=== PATIENT | male | born 1950 | race Caucasian/White ===

== ENCOUNTER 2023-07-31 23:59 | Emergency (ER) | payer MEDICARE, SELFPAY ==
--- NOTE | ~2023-07-31 | CT_ITS ---
CT Scan of the Chest without Contrast: Clinical Indication: Cough Technique: Contiguous sections were acquired throughout the chest without intravenous contrast. Dose reduction technique was used on this scan by utilizing automated exposure control and iterative recon struction technique. The dose-length product (DLP) was 360.60 mGy-cm. Findings: There is no evidence of any significant mediastinal, hilar or axillary lymphadenopathy. The mediastin al soft tissues appear normal. There is no evidence of pleural or pericardial effusion. There are multiple patchy areas of predominantly groundglass opacity bilaterally, most prevalent in t he right lower lobe. Images through the upper abdomen reveal no abnormalities. Impression: Patchy, predominantly groundglass consolidation, worst in the right lower lobe. Findings are most com patible with pneumonia/infectious process. Reviewed, dictated and finalized at [facility]. Impression: Patchy, predominantly groundglass consolidation, worst in the right lower lobe. Findings are most compatible with pneumonia/infectious process.
[2023-08-01] VITALS (7 sets, daily range): BP systolic 120–122; BP diastolic 68–78; PULSE 94–131; RESP 19–22; TEMP 38.2; O2SAT 95–97
--- NOTE | 2023-08-01 00:08 | PC.NURSE ---
Patient states he took two or three allergy pills and two Tylenol around .
--- NOTE | 2023-08-01 00:25 | ED.URI ---
HPI - URI/Sore Throat General Chief Complaint: Upper Respiratory Infection Stated Complaint: i think i have COVID fever and a little cough Time Seen by Provider: 08/01/23 00:12 History of Present Illness HPI Narrative: Patient presents to the emergency department with his . They recently traveled to [place] with a group of friends. When they came back his had upper respiratory symptoms. She thought it was her allergies. But then the patient became sick as well. Cough body aches fever. Took 3 Tylenol at home did not improve the temperature so came to the emergency department. Patient told triage nurse that he thinks he has COVID. His significant other contributes to the history saying they were worried when his fever did not improve. Patient is a very pleasant and amicable but appears uncomfortable Related Data Allergies Allergy/AdvReac Type Severity Reaction Status Date / Time No Known Allergies Allergy Mild Verified 03/15/11 13:14 Review of Systems Review of Systems: Review of systems negative except what is documented in the HPI Exam Narrative: GENERAL: Well-appearing, well-nourished, and in no acute distress. HEAD: Normocephalic, atraumatic. EYES: PERRLA and EOMI. ENT: Nares clear, no rhinorrhea or epistaxis. Mucous membranes moist. NECK: Supple. CHEST: Clear to auscultation. No respiratory distress. HEART: Regular rate and rhythm. ABDOMEN: Soft, nontender, nondistended. EXTREMITIES: Normal range of motion. No edema. SKIN: Warm, dry, no rash. NEURO: No focal deficits. Alert and oriented x3. PSYCH: Normal mood and affect. Course Course Emergency Course: Differential diagnosis includes but not limited to pneumonia, COVID, dehydration Telemetry ordered due to cough and weakness and tachycardia to evaluate for dysrhythmias. Evaluated by myself. Rhythm sinus tach Rate 120 I have discussed smoking cessation with patient and advised of the dangers. He currently does not smoke and says he wont start. Vital Signs Vital signs: Vital Signs Temperature 38.2 C H 08/01/23 00:02 Pulse Rate 131 H 08/01/23 00:02 Respiratory Rate 22 H 08/01/23 00:02 Blood Pressure 120/78 08/01/23 00:02 Pulse Oximetry 96 08/01/23 00:02 Oxygen Delivery Room Air 08/01/23 00:02 Temperature 38.2 C H 08/01/23 00:02 Pulse Rate 94 08/01/23 05:01 Respiratory Rate 19 08/01/23 05:01 Blood Pressure 122/68 08/01/23 05:03 Pulse Oximetry 95 08/01/23 05:01 Oxygen Delivery Room Air 08/01/23 00:02 MDM - URI/Sore Throat MDM Narrative Medical decision making narrative: Pt pending ct scan and he is feeling worse. Additional meds ordered. CT scan comes back and shows mild patchy bilateral infiltrates especially in the right lower lobe. As well as small mediastinal lymph nodes. We will treat patient for pneumonia. Heart rate improved to 94. 93% on room air. Blood pressure stable. Initial dose of antibiotics given in emergency department. Will DC to home. Shared decision making with patient and friend regarding antibiotics to take at home for fever and symptoms and when to return to the emergency department Lab Data 08/01/23 00:54 08/01/23 00:54 Labs: Lab Results 08/01/23 08/01/23 Range/Units 00:13 00:54 WBC 6.5 (4.5-10.0) K/mm3 RBC 3.38 L (4.6-6.20) M/mm3 Hgb 12.0 L (14.0-18.0) g/dL Hct 34.0 L (42.0-52.0) % MCV 100.6 H (80-100) fl MCH 35.5 H (26-34) pg MCHC 35.3 (32-36) g/dl RDW 11.5 (11.5-14.5) % Plt Count 142 L (150-375) k/mm3 MPV 9.4 (7.4-10.4) fl Immature Gran % (Auto) 0.5 (0-0.5) % Neut % (Auto) 74.6 H (45.5-73.1) % Lymph % (Auto) 5.7 L (18.3-44.2) % [place] % (Auto) 18.7 H (2.6-8.5) % Eos % (Auto) 0.2 (0-4.4) % Baso % (Auto) 0.3 (0.2-1.2) % Lymph # (Auto) 0.37 L (0.9-3.2) K/mm3 [place] # (Auto) 1.2 H (0.1-0.6) K/mm3 Eos # (Auto) 0.0 (0-0.3) K/mm3 Baso # (Auto) 0.0
[2023-08-01] MEDS: BENZONATATE 100 MG CAPSULE PO ×2 (00:52→04:53)
[2023-08-01] MEDS: KETOROLAC 15 MG/ML VIAL (*BKC) IV PUSH (00:53)
[2023-08-01] MEDS: SODIUM CHLORIDE 0.9% IV 1,000 ML 999 ML IV CONT (00:53)
[2023-08-01 00:55] LABS: Influenza A QL RT-PCR Negative (Negative); Influenza B QL RT-PCR Negative (Negative); RSV RNA, RT-PCR Negative (Negative); SARS-CoV-2 RNA PCR Negative (Negative)
[2023-08-01 01:04] LABS: Basophils Percent Auto 0.3 % (0.2-1.2); Eosinophils Percent Auto 0.2 % (0-4.4); Immature Granulocyte Absolute 0.03 K/mm3 (0.00-0.031); Immature Granulocyte Percent A 0.5 % (0-0.5); Lymphocytes Absolute Auto 0.37 K/mm3 (0.9-3.2); Lymphocytes Percent Auto 5.7 % (18.3-44.2); Mean Corpuscular HGB Conc 35.3 g/dl (32-36); Mean Corpuscular Hemoglobin 35.5 pg (26-34); Mean Corpuscular Volume 100.6 fl (80-100); Mean Platelet Volume 9.4 fl (7.4-10.4); Monocytes Absolute Auto 1.2 K/mm3 (0.1-0.6); Monocytes Percent Auto 18.7 % (2.6-8.5); Neutrophils Absolute Auto 4.8 K/mm3 (1.3-6.7); Neutrophils Percent Auto 74.6 % (45.5-73.1); Platelet Count Result 142 k/mm3 (150-375); Red Blood Count 3.38 M/mm3 (4.6-6.20); Red Cell Distribution Width 11.5 % (11.5-14.5); White Blood Count 6.5 K/mm3 (4.5-10.0)
[2023-08-01 01:15] LABS: Alanine Aminotransferase 20 U/L (6-50); Albumin Level 4.1 g/dL (3.5-5.1); Alkaline Phosphatase 38 U/L (38-126); Anion Gap 12 mmol/L (8-16); Aspartate Amino Transferase 27 U/L (17-59); Bilirubin,Total 0.9 mg/dL (0.2-1.3); Blood Urea Nitrogen 11 mg/dL (9-20); Calcium 8.9 mg/dL (8.4-10.2); Carbon Dioxide 19 mmol/L (22-30); Chloride 94 mmol/L (98-107); Estimated CRCL calculation 80 ml/min; Estimated Glomerular Filt Rate > 60; Glucose 112 mg/dL (65-110); Potassium 3.7 mmol/L (3.4-5.0); Sodium 125 mmol/L (137-145)
--- NOTE | 2023-08-01 03:00 | PC.NURSE ---
Patient removed his leads, BP cuff, and pulse ox. Patient's visit unplugged monitor stating, We were tired of the beeping .
[2023-08-01] MEDS: traMADol HCL (*CRX) 50 MG TABLET PO (04:53)
[2023-08-01] MEDS: LORATADINE 10 MG TABLET PO (05:00)
[2023-08-01] MEDS: AMOXICILLIN 500 MG CAPSULE PO (05:07)
[2023-08-01] MEDS: AZITHROMYCIN 250 MG TABLET 500 MG PO (05:07)
== END 2023-08-01 05:24 | disposition home or self-care (01) ==
PROVIDERS: Emergency Provider Emergency Medicine
DX: J18.9 Pneumonia, unspecified organism (principal); R50.9 Fever, unspecified; R00.0 Tachycardia, unspecified; Z20.822 Contact with and (suspected) exposure to COVID-19
CPT/HCPCS: 36415; 71250; 80053; 85025; 87637; 96361; 96374; 99284; A9270; J1885; J7030

== ENCOUNTER 2024-06-06 20:56 | Emergency (ER) | payer MEDICARE, SELFPAY ==
--- NOTE | ~2024-06-06 | XR_ITS ---
EXAM: XR knee RT min 4V DATE: 06/06/2024 21:16 HISTORY: swelling, pain TO ANTERIOR KNEE, NKI, SURGERY 7 YRS AGO . COMPARISON: 10/10/2012. FINDINGS: Uncomplicated appearing medial compartment hemiarthroplasty hardware. Decreased mineraliza tion. No fracture or dislocation. No lytic or blastic lesion. Moderate degenerative change in the pat ellofemoral compartment. Mild degenerative change in the lateral compartment. No erosion or periostea l change. Stable calcifications/ossifications in the popliteal fossa. Moderate volume joint fluid. IMPRESSION: No acute fracture or dislocation in right knee. Moderate right knee joint effusion. No ra diographic evidence of hardware related complication. Reviewed, dictated and finalized at location K. IMPRESSION: No acute fracture or dislocation in right knee. Moderate right knee joint effusion. No radiographic evidence of hardware related complication.
[2024-06-06 20:58] VITALS: BP 122/65; PULSE 87; RESP 17; TEMP 36.7; O2SAT 98
--- NOTE | 2024-06-06 23:08 | ED.EXTPRO ---
HPI - Extremity Problem General Chief complaint: Extremity Problem,Nontraumatic Stated complaint: right knee pain Time Seen by Provider: 06/06/24 22:54 Source: patient and family Mode of arrival: ambulatory Limitations: no limitations History of Present Illness HPI Narrative: Patient presents with right knee pain starting yesterday and worsening. He tried Tylenol and Biofreeze he has and lidocaine Aspercreme ibuprofen. He describes it as a throbbing. He has a history of knee replacement surgery of 7 years ago with Orthopedic surgery and Dr. Nickolas durant a in [place] that does not follow with him routinely/regularly and does not know if he is still in practice. He has been more active lately since he bought a house and is in the process of moving. Denies any fevers. Pain is described as a throbbing. No direct injury/trauma. Patient describes pain not particularly along the medial or lateral joint line or even anteriorly or posteriorly particularly but states that it feels like it is inside. He does keep talking about his chronic back pain and has to at times be redirected by myself and his to discuss the knee pain. For his chronic back pain he receives lumbar shots at [facility] for which he is next due for another 1 in 2 weeks. Related Data Home Medications Medication Instructions Recorded Confirmed atorvastatin 20 mg tablet 20 mg PO DAILY 12/20/23 03/01/24 tadalafil 20 mg tablet 20 mg PO DAILY 12/20/23 03/01/24 cholecalciferol (vitamin D3) 25 25 mcg PO DAILY 03/01/24 03/01/24 mcg (1,000 unit) capsule ferrous sulfate 325 mg (65 mg 325 mg PO DAILY 03/01/24 03/01/24 iron) tablet vitamin B complex 1 tablet PO DAILY 03/01/24 03/01/24 Allergies Allergy/AdvReac Type Severity Reaction Status Date / Time No Known Allergies Allergy Mild Verified 12/20/23 14:30 [facility] Past Medical History Medical History Chronic back pain Hyperlipidemia Osteoarthritis Surgical History Surgical History History of appendectomy 1969 History of right inguinal hernia repair 2004 History of shoulder surgery X4 History of tonsillectomy History of total knee arthroplasty Right; orthopedic surgeon Dr Mckay Hx of bilateral cataract extraction 09/2023 Social History Social History (Updated 12/20/23 @ 14:36 by Megan Valencia MA) Smoking status: Never smoker Alcohol intake: current Substance use: never Substance use type: does not use Do You Feel Safe in your Home?: Yes Lack of Transportation: No Lack of Food: Never True Current Housing: I Have Housing Concerned About Future Housing: No Difficulty Paying Gas/Electric Bills: No Difficulty Paying for Meds: No Currently Unemployed: No Education: Associate Degree Difficulty w/ Childcare or Family Care: No Living arrangements: alone Occupation/Education: retired Gender identity (if verbalized by the patient): Male Sexual Orientation (if Verbalized by the Patient): Straight or Heterosexual Spiritual care concerns: No Exam Narrative: GENERAL: Well-appearing, well-nourished, and in no acute distress. HEAD: Normocephalic, atraumatic. EYES: Non injected, non icteric ENT: Nares clear, no rhinorrhea or epistaxis. NECK: Supple. CHEST: Speaking in full sentences. No respiratory distress. HEART: Regular rate and rhythm. . ABDOMEN: Soft, nondistended. EXTREMITIES: Normal range of motion. 2+ pitting edema right leg, 1+ edema left leg. 5/5 strength with bilateral knee flexion extension, hip abduction/adduction/flexion. No tenderness to palpation of lateral or medial joint line. No effusion around the right knee with no overlying skin changes. SKIN: Warm, dry, no rash. Warm and well perfused but knee not particularly warm to the touch. NEURO: No focal deficits. Alert and oriented x3. Sensation intact to gross t
[2024-06-07] MEDS: APIXABAN 5 MG TABLET PO (00:09)
[2024-06-07 00:14] VITALS: BP 118/74; PULSE 87; RESP 14; O2SAT 98
== END 2024-06-07 00:16 | disposition home or self-care (01) ==
PROVIDERS: Emergency Provider Student in an Organized Health Care Education/Training Program; PCP Family Medicine
DX: M25.461 Effusion, right knee (principal); R60.0 Localized edema; Z96.651 Presence of right artificial knee joint; E78.5 Hyperlipidemia, unspecified; M19.90 Unspecified osteoarthritis, unspecified site; G89.29 Other chronic pain; M54.9 Dorsalgia, unspecified; Z98.42 Cataract extraction status, left eye; Z98.41 Cataract extraction status, right eye; Z79.899 Other long term (current) drug therapy
CPT/HCPCS: 73564; 93971; 99283; A9270

== ENCOUNTER 2024-06-07 06:52 | Outpatient (CLI) | payer MEDICARE, SELFPAY ==
--- NOTE | ~2024-06-07 | US_ITS ---
EXAMINATION: US venous doppler LE RT DATE: 06/07/2024 08:35 INDICATION: Right lower limb pain and swelling TECHNIQUE: Grayscale ultrasound images without and with compression and Doppler ultrasound images of the right lower extremity veins were obtained. COMPARISON: None. FINDINGS: The visualized portions of right common femoral vein, profunda (deep) femoral vein, femoral vein, pop liteal vein, peroneal trunk, posterior tibial veins, peroneal veins, gastrocnemius vein and greater s aphenous vein outflow are patent. IMPRESSION: 1. No deep venous thrombosis in the right lower limb. Reviewed, dictated and finalized at location A.
== END 2024-06-07 06:53 | disposition home or self-care (01) ==
PROVIDERS: PCP Family Medicine; Visit Provider Student in an Organized Health Care Education/Training Program
DX: M25.461 Effusion, right knee (principal)
CPT/HCPCS: 93971

== ENCOUNTER 2025-02-03 12:27 | Outpatient (CLI) | payer MEDICARE, SELFPAY ==
--- NOTE | ~2025-02-03 | CT_ITS ---
EXAMINATION: CT abdomen pelvis w con DATE: 02/03/2025 13:28 INDICATION: Abnormal weight loss TECHNIQUE: Computed tomography (CT) of the abdomen and pelvis was performed with 100 CC Omnipaque 350 intravenous contrast. Automated exposure control and iterative reconstruction technique were employe d. Exam dose: 461.39 mGy-cm total exam DLP. COMPARISON: None. FINDINGS: The lung bases are clear. Normal heart size. No pericardial or pleural effusion. There are couple approximately 6 mm right hepatic probable cysts and 10 mm lateral segment left hepat ic probable cyst. An additional very small medial segment left hepatic probable cyst is suggested. The gallbladder appears unremarkable without thickening of the wall or surrounding fat stranding or f luid. No bile duct or pancreatic duct dilatation. No pancreatic mass lesion or calcification. Normal splenic size. Normal morphology of the adrenal glands. 5 mm right renal cortical cyst. Several left renal cysts, measuring up to 1.9 cm. No urinary tract calculus or hydroureteronephrosis. There is diffuse thickening of the urinary bladder wall, which may be due to underdistention, mild pr ostatomegaly or cystitis. No bowel obstruction, bowel wall thickening, pneumatosis or intraperitoneal free air. No abdominal aortic aneurysm. No intraperitoneal or retroperitoneal or pelvic mass lesion or adenopathy or ascites. There is a 2.3 x 2.8 cm oval soft tissue density in the right inguinal area which may be a mesh plug from prior ingu inal herniorrhaphy; differential diagnosis would include right external iliac lymphadenopathy. Recomm end correlation with surgical history. There is dextroscoliosis and multilevel severe degenerative disease of the lumbar spine, particularly at L1-2 and L2-3 on the left, L3-4 diffusely and at L4-5 on the right. No suspicious osteolytic or osteoblastic lesions are noted.. IMPRESSION: Occasional hepatic and renal cysts Diffuse thickening of the urinary bladder wall which may be due to underdistention, prostatomegaly or cystitis Probable right inguinal herniorrhaphy versus less likely right external iliac lymphadenopathy; recomm end correlation with surgical history. Reviewed, dictated and finalized at [facility]. Reviewed, dictated and finalized at [facility]. IMPRESSION: Occasional hepatic and renal cysts Diffuse thickening of the urinary bladder wall which may be due to underdistent ion, prostatomegaly or cystitis Probable right inguinal herniorrhaphy versus less likely right external iliac l ymphadenopathy; recommend correlation with surgical history.
--- OUTSIDE RECORDS SUMMARY | 2025-02-03 12:31 | XMS_ITS | Encounter Summary ---
Author Organization [facility] Address [facility]ly [facility], [facility] [place] [address] Care Team Providers Care Towel Sorter Name Role Phone Channing Barlow MD Primary Care Provider U Amy Camara MD Primary Care Provider [phone] None, Provider Primary Care Provider Unavaila ble Amy Cortes MD Primary Care Provider [phone] Bari Ballard MD Primary Care Provider [phone] Encounter Details Date Type Department Care Team (Late st Contact Info) Description 05/18/2017 Abstract [facility] CONVERSION [address] [place] [address] , Generic ConversionMD Social History Tobacco Use Types Packs/Day Years Used Date Smoking Tobacco: Never Assessed Sex and Gender Information Value Date Recorded Sex Assigned at Male 12/04/2024 9:39 AM FINISH MOLDER Legal Sex Male 7:23 PM CDT Gender Identity Not on file Sexual Orientation Not on file documented as of this encounter Plan of Treatment Not on file documented as of this encounter Visit Diagnoses Not on filedocumented in this encounter Care Teams Towel Sorter Relationship Specialty Start Date End Date Channing Barlow MD PCP - General INTERNAL MEDICINE 05/25/17 12/30/22 [place] [address] [place] [address] PCP - General FAMILY PRACTICE 12/31/22 06/06/24 None, Provider, PCP - General UNKNOWN PHYSICIAN SPECIALTY 06/20/24 08/21/24 [place] [address] [facility]. [address] [address] PCP - General FAMILY PRACTICE 08/22/24 09/03/24 Bari Ballard MD [address] [place] [address] PCP - General FAMILY PRACTICE 09/04/24 documented as of this encounter
--- OUTSIDE RECORDS SUMMARY | 2025-02-03 12:31 | XMS_ITS | Encounter Summary ---
Author Organization [facility] Address [facility] [place] [address] Care Team Providers Care Bar Catcher Name Role Phone Channing Barlow MD Primary Care Provider U Amy Camara MD Primary Care Provider [phone] None, Provider Primary Care Provider Unavaila Amy Gilliam MD Primary Care Provider [phone] Bari Ballard MD Primary Care Provider [phone] Encounter Details Date Type Department Care Team (Late st Contact Info) Description 12/02/2015 Abstract [facility] CONVERSION [address] [place] [address] , Generic Conversion, Social History Tobacco Use Types Packs/Day Years Used Date Smoking Tobacco: Never Assessed Sex and Gender Information Value Date Recorded Sex Assigned at Male 12/04/2024 9:39 AM HEAD OF DATA Legal Sex Male 7:23 PM CDT Gender Identity Not on file Sexual Orientation Not on file documented as of this encounter Plan of Treatment Not on file documented as of this encounter Visit Diagnoses Not on filedocumented in this encounter Care Teams Bar Catcher Relationship Specialty Start Date End Date Channing Barlow MD PCP - General INTERNAL MEDICINE 05/25/17 12/30/22 [place] [address] [place] [address] PCP - General FAMILY PRACTICE 12/31/22 06/06/24 None, Provider, PCP - General UNKNOWN PHYSICIAN SPECIALTY 06/20/24 08/21/24 [place] [address] [facility]. [address] [address] PCP - General FAMILY PRACTICE 08/22/24 09/03/24 Bari Ballard MD [address] [place] [address] PCP - General FAMILY PRACTICE 09/04/24 documented as of this encounter
--- OUTSIDE RECORDS SUMMARY | 2025-02-03 12:31 | XMS_ITS | Continuity of Care Document ---
Author Organization [facility] Address [address] [place] [address] Phone Care Team Providers Care Agitator Operator Name Role Phone Sammy RUBIO, Peter Unavailable Unavailable Procedures Procedure Date Work/medical disability examination [facility] X-ray exam of knee, 1 or2 views 010 X-ray exam of both knees, standing Prolonged serv, w/o contact, 1st hr Advance Directives Directive Yes / No Effective Date File Name No Information Encounters Encounter Description Practice Location Reason(s) For Visit Diagnoses Date Provider Providers Copied on Encounter Work/medical disability examination [facility] [email or web address] [facility], [address] [facility], [place], [place], [id number], tel:[phone] [facility] No Information 0 Sammy Green. [address] [facility], [facility] [address], [place], [place], [id number] , . tel: [phone] Family History Family Member Type Diagnosis Age At Onset No Information Payers Payer name Insurance type Covered republican ID Katharine smallwood(isha Ansari [id number] Social History Type Description Quantity Date Captured [...]
--- OUTSIDE RECORDS SUMMARY | 2025-02-03 12:31 | XMS_ITS | Encounter Summary ---
Author Organization [facility] Address [facility] [place] [address] Care Team Providers Care Flat Surfacer Name Role Phone Amy Cortes MD Primary Care Provider [phone] None, Provider MD Primary Care Provider Unavaila [facility] Amy Cortes MD Primary Care Provider [phone] Bari Ballard MD Primary Care Provider [phone] Encounter Details Date Type Department Care Team (Late st Contact Info) Description 08/16/2023 DocuSign Message Enc [facility] Family & Internal Medicine [address] [address] Alex, [facility] Provider results Social History Tobacco Use Types Packs/Day Years Used Date Smoking Tobacco: Never Smokeless Tobacco: Never Alcohol Use Standard Drinks/Week Comments Yes 10 (1 standard drink = 0.6 oz pu re alcohol) Occasional PHQ-2 Answer Date Recorded Patient Health Questionnaire-2 Score 0 12/03/2022 Education Answer Date Recorded What is the highest level of school you have completed or the highest degree you have received? Associate degree: academic program 12/04/2018 Sex and Gender Information Value Date Recorded Sex Assigned at Male 12/04/2024 9:39 AM PAPER SALES REPRESENTATIVE Legal Sex Male 7:23 PM CDT Gender Identity Not on file Sexual Orientation Not on file documented as of this encounter Plan of Treatment Not on file documented as of this encounter Visit Diagnoses Not on filedocumented in this encounter Additional Health Concerns Assessment Noted Time PHQ-9 Depression Total Score: 0 05/26/20 22 9:59 AM CDT documented as of this encounter Care Teams Flat Surfacer Relationship Specialty [place] [address] [place] [address] PCP - General FAMILY PRACTICE 12/31/22 06/06/24 None, Provider, PCP - General UNKNOWN PHYSICIAN SPECIALTY 06/20/24 08/21/24 [place] [address] [place] [address] PCP - General FAMILY PRACTICE 08/22/24 09/03/24 Bari Ballard MD [address] [place] [address] PCP - General FAMILY PRACTICE 09/04/24 documented as of this encounter
--- OUTSIDE RECORDS SUMMARY | 2025-02-03 12:31 | XMS_ITS | Encounter Summary ---
Author Organization [facility] Address [facility] [place] [address] Care Team Providers Care Fund Accounting Manager Name Role Phone Bari Ballard MD Primary Care Provider [phone] Reason for Visit * Auth/Cert (Routine) Specialty Diagnoses / Procedures Referred By Contsoto t Referred To Contact Diagnoses Lumbar facet arthropathy lumbar facet arthropathy Procedures INJ PARAVERTEBRAL FACET JOINT W IMAGE SINGL INJ PARAVERTEBRAL FACET JOINT W IMAGE SINGL INJ DIAGNOSTIC OR THERAPEUTIC W IMAGE GUIDE INJECTION FACET JOINT-L2-3, L3-4 Erika Short MD [address] [facility] [address] [place] [address] Phone: tel: fax: Referral ID Status Reason Start Date Expiration Date Visits Re quested Visits Authorized [id number] 1 1 Encounter Details Date Type Department Care Team (Late st Contact Info) Description 10/24/[address] [facility] [address] [place], [place] [id number] Erika Short MD [address] [facility] [address] [place] [address] Social History Tobacco Use Types Packs/Day Years Used Date Smoking Tobacco: Never Smokeless Tobacco: Never Alcohol Use Standard Drinks/Week Comments Yes 10 (1 standard drink = 0.6 oz pu re alcohol) Occasional PHQ-2 Answer Date Recorded Patient Health Questionnaire-2 Score 0 12/07/2023 Education Answer Date Recorded What is the highest level of school you have completed or the highest degree you have received? Associate degree: academic program 12/04/2018 Sex and Gender Information Value Date Recorded Sex Assigned at Male 12/04/2024 9:39 AM LAUNDRY SORTER Legal Sex Male 7:23 PM CDT Gender Identity Not on file Sexual Orientation Not on file documented as of this encounter Plan of Treatment Not on file documented as of this encounter Visit Diagnoses Not on filedocumented in this encounter Admitting Diagnoses Diagnosis Lumbar facet arthropathy Lumbosacral spondylosis without myelopathy documented in this encounter Additional Health Concerns Assessment Noted Time PHQ-9 Depression Total Score: 0 05/26/20 9:59 AM CDT documented as of this encounter Care Teams Fund Accounting Manager Relationship Specialty Start Date End Date Bari Ballard MD [address] [place] [address] PCP - General FAMILY PRACTICE 09/04/24 documented as of this encounter
--- OUTSIDE RECORDS SUMMARY | 2025-02-03 12:31 | XMS_ITS | Encounter Summary ---
Author Organization [facility] Address [facility] [place] [address] Care Team Providers Care Evaluation Specialist Name Role Phone Bari Ballard MD Primary Care Provider [phone] Reason for Referral * Surgical (Routine) - New Request Specialty Diagnoses / Procedures Referred By Shari omer Referred To Contact Diagnoses Lumbar facet arthropathy Procedures Case request operating room: RADIOFREQUENCY LUMBAR-L2, 3, 4 [facility] [address] Phone: tel: [phone] fax: Referral ID Status Reason Start Date Expiration Date V isits Requested Visits Authorized [id number] New Request 10/24/2024 10/24/2025 1 1 RIOR INTERIOR SPECIALIST Encounter Details Date Type Department Care Team (Late st Contact Info) Description 10/24/2024 Prep for Procedure [facility] [place] [place] [id number] [facility] 3 [facility] [address] [phone] (Work) Social History Tobacco Use Types Packs/Day Years [...] Sex Assigned at Male 12/04/2024 9:39 AM EXTERIOR INTERIOR SPECIALIST Legal Sex Male 7:23 PM CDT Gender Identity Not on file Sexual Orientation Not on file documented as of this encounter Plan of Treatment Not on file documented as of this encounter Visit Diagnoses Diagnosis Lumbar facet arthropathy- Primary Lumbosacral spondylosis without myelopathy documented in this encounter Additional Health Concerns Assessment Noted Time PHQ-9 Depression Total Score: 0 05/26/20 9:59 AM CDT documented as of this encounter Care Teams Evaluation Specialist Relationship Specialty Start Date End Date Bari Ballard MD [address] [place] [address] PCP - General FAMILY PRACTICE 09/04/24 documented as of this encounter
--- OUTSIDE RECORDS SUMMARY | 2025-02-03 12:31 | XMS_ITS | Encounter Summary ---
Author Organization [facility] Address [facility] [place] [address] Care Team Providers Care Grinder Operator Name Role Phone Amy Cortes MD Primary Care Provider [phone] None, Provider MD Primary Care Provider [facility] Amy Cortes MD Primary Care Provider [phone] Bari Ballard MD Primary Care Provider [phone] Encounter Details Date Type Department Care Team (Late st Contact Info) Description 10/18/2023 Stand Offer Message Enc [facility] Family & Internal Medicine [address] [address] Mychart, [facility] Provider Parking placard Social History Tobacco Use Types Packs/Day Years [...] Sex Assigned at Male 12/04/2024 9:39 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 S OPERATIONS CONSULTANT * Skip Franco - 10/21/2023 1:40 PM CST Pt came by, signed the forms and took with him as he will take to [place]. S OPERATIONS CONSULTANT documented in this encounter Plan of Treatment Not on file documented as of this encounter Visit Diagnoses Not on filedocumented in this encounter Additional Health Concerns Assessment Noted Time PHQ-9 Depression Total Score: 0 05/26/20 22 9:59 AM CDT documented as of this encounter Care Teams Grinder Operator Relationship Specialty [place] [address] [address] [place] [address] PCP - General FAMILY PRACTICE 12/31/22 06/06/24 None, ProviderMD PCP - General UNKNOWN PHYSICIAN SPECIALTY 06/20/24 08/21/24 [place] [address] [address] [place] [address] PCP - General FAMILY PRACTICE 08/22/24 09/03/24 Bari Ballard MD [address] [place] [address] PCP - General FAMILY PRACTICE 09/04/24 documented as of this encounter
--- OUTSIDE RECORDS SUMMARY | 2025-02-03 12:31 | XMS_ITS | Encounter Summary ---
Author Organization [facility] Address [facility] [place] [address] Care Team Providers Care Ict Business Analyst Name Role Phone None, Provider Primary Care Provider Amy Campbell MD Primary Care Provider Bari Ballard MD Primary Care Provider [phone] Reason for Visit * Auth/Cert (Routine) Specialty Diagnoses / Procedures Referred By Contac t Referred To Contact Diagnoses Lumbar facet arthropathy lr Procedures INJECTION FACET JOINT l23 and l34 Erika Short MD [facility] [address] [place] [address] Phone: tel: fax: Referral ID Status Reason Start Date Expiration Date Visits Re quested Visits Authorized [id number] 1 1 Encounter Details Date Type Department Care Team (Late st Contact Info) Description 08/20/2024 Hospital Encounter [facility] Interventional Pain Management Center [address] [place], [place] [id number] [id number] Erika Short MD [facility] [address] [place] [address] Social History Tobacco Use Types Packs/Day [...] Sex Assigned at Male 12/04/2024 9:39 AM 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
--- OUTSIDE RECORDS SUMMARY | 2025-02-03 12:31 | XMS_ITS | Encounter Summary ---
Author Organization [facility] Address [facility] [place] [address] Care Team Providers Care Supervisor Pipelines Name Role Phone Amy Cortes MD Primary Care Provider [phone] None, Provider MD Primary Care Provider Unavaila [facility] Amy Cortes MD Primary Care Provider [phone] Bari Ballard MD Primary Care Provider [phone] Encounter Details Date Type Department Care Team (Late st Contact Info) Description 08/30/2023 Vital Juice Newsletter Message [facility] Family & Internal Medicine [address] [address] Alex, [facility] Provider pneumonia Social History Tobacco Use Types Packs/Day Years [...] Sex Assigned at Male 12/04/2024 9:39 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 [place] [address] PCP - General FAMILY PRACTICE 12/31/22 06/06/24 None, Provider, PCP - General UNKNOWN PHYSICIAN SPECIALTY 06/20/24 08/21/24 [place] [address] [address] [place] [address] PCP - General FAMILY PRACTICE 08/22/24 09/03/24 Bari Ballard MD [address] [place] [address] PCP - General FAMILY PRACTICE 09/04/24 documented as of this encounter
--- OUTSIDE RECORDS SUMMARY | 2025-02-03 12:31 | XMS_ITS | Clinical Summary ---
Author Organization [facility] Address Formerly [facility] [place] [address] Care Team Providers Care Business Development Analyst Name Role Phone Bari Ballard MD Primary Care Provider [phone] Allergies No known active allergies Medications atorvastatin (LIPITOR) 20 MG tabletIndications: Mixed hyperlipidemia Take 1 tablet (20 mg total) by mouth daily. 90 tablet 3 4 Active tadalafil (CIALIS) 20 MG tabletIndications: Erectile dysfunction, unspecified erectile dysfunction type Take 1 tablet (20 mg total) by mouth daily as needed for Erectile Dysfunction. 25 tablet 5 4 Active scopolamine (TRANSDERM-SCOP) 1 MG/3DAYS patchIndications:M otion sickness, initial encounter Place 1 patch onto the skin every third day. 5 patch 4 Active triamcinolone (KENALOG) 0.1 % cream Apply topically 2 (two) times daily. 4 Active acetaminophen (TYLENOL) 500 MG tablet TAKE 2 CAPSULES BY MOUTH EVERY 6 HOURS NEEDED FOR PAIN 4 Active busPIRone (BUSPAR) 10 MG tablet Take 1 tablet (10 mg total) by mouth 2 (two) times daily. 5 Active HYDROcodone-acetam inophen (NORCO) 5-325 MG tabletIndications: Acute Pain < 7 Day Supply Take 1 tablet by mouth every 6 (six) hours as needed. Indications: Acute Pain < 7 Day Supply 20 tablet 5 Active Active Problems Problem Noted Date Diagnosed Date Lumbar facet arthropathy 08/04/2023 Overview (08/04/2023): Added automatically from request for surgery [id number] Erectile dysfunction, unspecified erectile dysfu nction type 04/12/2023 Grieving 08/13/2021 Lumbar radiculopathy 07/30/2021 Decreased hearing of both ears 03/04/2021 BMI 32.0-32.9,adult 05/22/2019 Anemia, unspecified type 03/11/2014 Anxiety 07/20/2013 Hyperlipidemia 07/20/2013 Resolved Problems Problem Noted Date Diagnosed Date Resolved Date Need for immunization against influenza 08/13/2021 08/17/2021 Health care maintenance 05/27/202105/14 Diarrhea of presumed infectious origin 05/20/2020 11/27/2020 Acute upper respiratory infection 08/07/2019 05/19/2020 Acute bronchiolitis due to u nspecified organism 05/22/2019 08/07/2019 Abnormal heart sounds 05/18/20172018 Lumbosacral pain 12/17/2016 05/22/2019 Leucopenia 04/10/2014 05/22/2019 Polyosteoarthritis, unspecified 09/09/2013 11/27/2020 Encounters Date Type Department Care Team Description 12/31/2024 10:40 AM [facility] - 12/31/2024 11:00 AM [facility] Surgery [facility] Interventional [place] [address] [id number] Erika Short MD RADIOFREQUENCY LUMBAR l234 12/31/2024 9:33 AM DIGGING MACHINE OPERATOR - 12/31/2024 11:07 AM DIGGING MACHINE OPERATOR Hospital Encounter [facility] Interventional [place] [address] [id number] Erika Short MD Discharge Disposition: Home or Self Care (Routine Discharge) 12/31/2024 Travel 12/04/2024 10:40 AM DIGGING MACHINE OPERATOR - 12/04/2024 11:00 AM [facility] Surgery [facility] Interventional [place] [address] [id number] Erika Short MD RADIOFREQUENCY LUMBAR-L2, 3, 4 12/04/2024 9:40 AM DIGGING MACHINE OPERATOR - 12/04/2024 11:21 AM DIGGING MACHINE OPERATOR Hospital Encounter [facility] Interventional Pain [place] [address] [id number] Erika Short MD Discharge Disposition: Home or Self Care (Routine Discharge) 12/04/2024 Travel 11/09/2024 Telephone [facility] Interventional [place] [address] [id number] Hilda Cisneros RN Follow Up Call from Last 3 Months Immunizations Name Administration Dates Next Due Fluzone High Dose - >Age 65 (Prefilled Syringe) 08/12/2023,08/19/2022,08/13/2021,2019,08/07/2019,09/26/2017 Influenza (Generic) 07/30/2016, 5,08/27/2015,2013,09/05/2013 Influenza Adult (Generic) 08/21/2018,,07/30/2016,2014,09/06/2014 MODERNA COVID-19 (12+) MRNA, LNP-S, PF, 100 MCG/ 0.5 ML DOSE 02/17/2021,01/20/2021 MODERNA COVID-19 (STAFF MIDWIFE/APPRENTICESHIP DIRECTOR TIERA RAMILA), MRNA, LNP-S, PF, 50 MCG/ 0.25 ML DOSE 10/22/2021 PFIZER COVID-19 BIVALENT (12 +) mRNA, LNP-S, PF, 30 MCG/0.3 ML DOSE 09/02/2022 Pneumococcal (Pneumovax 23) 11/25/2021, 6 Pneumococcal (Prevnar 13) 06/07/2018 Td 11/18/2017 Td (TDVAX) 11/18/2017 Td (Tenivac) preservative free 11/18/2017 Family History Medical History Relation Comments pnuemonia Father unknown Mother Relation Status Comments Father Mother Alive Social History Tobacco Use Types Packs/Day Years Used Date Smoking Tobacco: Never Smokeless Tobacco: Never Tobacco Cessation:Counseling Given: No Alcohol Use Standard Drinks/Week Comments Yes 10 [...] Sex Assigned at Male 12/04/2024 9:39 AM DIGGING MACHINE OPERATOR Legal Sex Male 7:23 PM CDT Gender Identity Not on file Sexual Orientation Not on file Last Filed Vital Signs Vital Sign Reading Time Taken Comments Blood Pressure 125/76 12/31/2024 10:56 AM DIGGING MACHINE OPERATOR Pulse 73 12/31/2024 10:56 AM DIGGING MACHINE OPERATOR Temperature 36.6 C (97.9 F) 12/31/2024 10:03 AM DIGGING MACHINE OPERATOR Respiratory Rate 18 12/31/2024 10:56 AM DIGGING MACHINE OPERATOR Oxygen Saturation 98% 12/31/2024 10:56 AM DIGGING MACHINE OPERATOR Inhaled Oxygen Concentration - - Weight 84.1 kg (185 lb 6.4 oz) 12/31/2024 10:03 AM DIGGING MACHINE OPERATOR Height 182.9 cm (6') 12/31/2024 10:03 AM DIGGING MACHINE OPERATOR Body Mass Index 25.14 12/31/2024 10:03 AM DIGGING MACHINE OPERATOR Plan of Treatment Health Maintenance Due Date Last Done Comments Hepatitis C 1968 Zoster Vaccines (1 of 2) 2000 Annual Medicare Wellness Visit 2015 DTaP, Tdap and Td Vaccines (1 - Tdap) 11/19/2017 11/18/2017, 11/18/2017, 11/18/2017 COVID-19 Vaccine (5 - season) 2024 09/02/2022, 10/22/2021, 02/17/2021, Additional history exists Influenza Adult (#1) 2024 08/12/2023, 08/19/2022, 08/13/2021, Additional history exists PHQ-2 (Physician [place]) 11/14/2024 12/07/2023 RSV Immunization or 60+ Years (1 - 1-dose 75+ series) 2025 Colorectal Cancer Screening Colonoscopy (10 Years) 09/20/2028 09/20/2018, 08/30/2018 Pneumococcal Vaccine: 65+ Years Completed 11/25/2021, 06/07/2018, 08/18/2016 Meningococcal B Vaccine Aged Out No l onger eligible based on patient's age to complete this topic Meningococcal Vaccine Aged Out No mita ricky eligible based on patient's age to complete this topic RSV Immunizations Under 20 Months Aged Out No longer eligible based on patient's age to complete this topic Procedures Procedure Name Priority Date/Time Associated Diagnosis Comments LUMBAR OR SACRAL SINGLE FACET JOINT 12/31/2024 10:40 AM DIGGING MACHINE OPERATOR Lumbar facet arthropathy XR PAIN CLINIC C-ARM Today 12/31/2024 9:47 AM DIGGING MACHINE OPERATOR LUMBAR OR SACRAL SINGLE FACET JOINT 12/04/2024 10:47 AM DIGGING MACHINE OPERATOR Lumbar facet arthropathy XR PAIN CLINIC C-ARM Today 12/04/2024 9:43 AM DIGGING MACHINE OPERATOR COLONOSCOPY GENERIC (SCAN ORDER) Routine 09/20/2018 from Last 3 Months or Most Recently Relevant to Health Maintenance Results * XR PAIN CLINIC C-ARM (12/31/2024 9:47 AM DIGGING MACHINE OPERATOR) Only the most recent of2 resultswithin the time period is included. Narrative Radiology, Technologist - 12/31/2024 9:47 AM DIGGING MACHINE OPERATOR This report does not contain a radiologist's interpretation. Please review associated procedure and/or operative report. us Erika Short MD GENERAL IMAGING Final Result * COLONOSCOPY (09/20/2018) us Documents Scanned SCANNING Final Result from Last 3 Months or Most Recently Relevant to Health Maintenance Insurance [facility] MEDICARE Care Teams Business Development Analyst Relationship Specialty Start Date End Date Bari Ballard MD [address] [place] [address] PCP - General FAMILY PRACTICE 09/04/24
== END 2025-02-03 12:28 | disposition home or self-care (01) ==
PROVIDERS: PCP Family Medicine
DX: D64.9 Anemia, unspecified (principal); R10.9 Unspecified abdominal pain; R63.4 Abnormal weight loss; K76.89 Other specified diseases of liver; N28.1 Cyst of kidney, acquired; R93.41 Abnormal radiologic findings on diagnostic imaging of renal pelvis, ureter, or bladder
CPT/HCPCS: 74177; Q9967

== ENCOUNTER 2025-06-11 16:16 | Outpatient (CLI) | payer MEDICARE, SELFPAY ==
--- OUTSIDE RECORDS SUMMARY | 2025-06-11 16:22 | XMS_ITS | Continuity of Care Document ---
Author Organization [facility] Address [address] [place] [address] Phone Care Team Providers Care Heavy Equipment Rental Associate Name Role Phone Sammy RUBIO MD, Peter [...] Providers Copied on Encounter Work/medical disability examination [facility], [address], [place], [place], [id number], [place] tel:[phone] [facility] [employer] [facility] No Information 0 Sammy Green. [address] [facility] [address] [place] [address], [place], [place], [id number] , . tel: [phone] Family History Family Member Type Diagnosis Age At Onset No Information Payers Payer name Insurance type Covered constitution party ID Katharine smallwood(s) Elan [id number] Social History Type Description Quantity Date Captured [...]
--- OUTSIDE RECORDS SUMMARY | 2025-06-11 16:22 | XMS_ITS | Encounter Summary ---
Author Organization [facility] Address [facility] [place] [address] Care Team Providers Care Bookkeeper Assistant Name Role Phone Channing Barlow MD Primary Care Provider U Amy Camara MD Primary Care Provider None, Provider Primary Care Provider Unavaila ble Amy Cortes MD Primary Care Provider [phone] Bari Ballard MD Primary Care Provider [phone] Encounter Details Date Type Department Care Team (Late st Contact Info) Description 12/02/2015 Abstract [facility] CONVERSION [address] [place] [address] , Generic Conversion, Social History Tobacco Use Types Packs/Day Years Used Date Smoking Tobacco: Never Assessed Sex and Gender Information Value Date Recorded Sex Assigned at Male 12/04/2024 9:39 AM 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 [place] [address] PCP - General FAMILY PRACTICE 12/31/22 06/06/24 None, Provider, PCP - General UNKNOWN PHYSICIAN SPECIALTY 06/20/24 08/21/24 [place] [address] [facility] [address] PCP - General FAMILY PRACTICE 08/22/24 09/03/24 Bari Ballard MD [address] [place] [address] PCP - General FAMILY PRACTICE 09/04/24 documented as of this encounter
--- OUTSIDE RECORDS SUMMARY | 2025-06-11 16:22 | XMS_ITS | Encounter Summary ---
Author Organization [place] Address [facility] [place] [address] Care Team Providers Care Inspector Scales Name Role Phone Bari Ballard MD Primary Care Provider [phone] Reason for Visit * Auth/Cert (Routine) Specialty Diagnoses / Procedures Referred By Contac t Referred To Contact Diagnoses Lumbar facet arthropathy lumbar facet arthropathy Procedures INJ PARAVERTEBRAL FACET JOINT W IMAGE SINGL INJ PARAVERTEBRAL FACET JOINT W IMAGE SINGL INJ DIAGNOSTIC OR THERAPEUTIC W IMAGE GUIDE INJECTION FACET JOINT-L2-3, L3-4 Erika Short MD Three [facility] [address] [place] [address] Phone: tel: fax: Referral ID Status Reason Start Date Expiration Date Visits Re quested Visits Authorized [id number] 1 1 Encounter Details Date Type Department Care Team (Late st Contact Info) Description 04/11/2025 Hospital Encounter [facility] Interventional Pain Management Center [address] [place], [place] [address] [id number] Erika Short MD Three [facility] [address] [place] [address] Social History Tobacco Use Types Packs/Day [...] Sex Assigned at Male 12/04/2024 9:39 AM 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 Wish to be (Past 1 Month) No 04/11/2025 11:16 AM MAIRAT Wanda Gomes RN Activ e 2. Non-Specific Active Suicidal Thoughts (Past 1 Month) No 04/11/2025 11:16 AM CDT Wanda Gomes RN Activ e 6. Suicidal Behavior (Lifetime) No 12/31/2024 10:03 AM SOLUTION DESIGN ENGINEER Elif Low RN A ctive documented as of this encounter Plan of Treatment Not on file documented as of this encounter Visit Diagnoses Not on filedocumented in this encounter Admitting Diagnoses Diagnosis Lumbar facet arthropathy Lumbosacral spondylosis without myelopathy documented in this encounter Additional Health Concerns Assessment Noted Time PHQ-9 Depression Total Score: 0 05/26/20 22 9:59 AM CDT documented as of this encounter Care Teams Inspector Scales Relationship Specialty Start Date End Date Bari Ballard MD [address] [place] [id number] PCP - General FAMILY PRACTICE 09/04/24 documented as of this encounter
--- OUTSIDE RECORDS SUMMARY | 2025-06-11 16:22 | XMS_ITS | Clinical Summary ---
Author Organization [facility] Johnie walker Jonelle Address [address] [place] [address] Care Team Providers Care Screw Machine Adjuster Automatic Name Role Phone Unavailable Primary Care Provider Unavailabl e Allergies No known active allergies Medications acetaminophen (TYLENOL) 500 mg tablet TAKE 2 CAPSULES BY MOUTH EVERY 6 HOURS NEEDED FOR PAIN 06/07/2024 Active atorvastatin (LIPITOR) 20 mg tablet Take 20 mg by mouth daily. Active busPIRone (BUSPAR) 15 mg Tablet Take 1 Tablet by mouth 2 times daily. 05/14/2025 Active omeprazole (PriLOSEC) 20 mg Capsule, Delayed Release(E.C.) Take 1 Capsule by mouth daily. 05/02/2025 Active sertraline (ZOLOFT) 50 mg tablet Take 1 Tablet by mouth daily. 05/14/2025 Active tadalafiL (CIALIS) 20 mg tablet Take 20 mg by mouth 1 time daily as needed. 12/07/2023 Active Active Problems No known active problems Encounters Date Type Department Care Team Description 06/11/2025 3:00 PM CDT Office Visit [facility] Oncology and Hematology - [place] [address] [facility] [address] [place] [address] El Khan MD Chronic anemia (Primary Dx); Leukopenia, unspecified type from Last 3 Months Family History Medical History Relation Name Comments No Known Problems Child No Known Problems Father No Known Problems Mother No Known Problems Sister Relation Name Status Comments Child Alive Father Mother Sister Alive Social History Tobacco Use Types Packs/Day Years Used Date Smoking Tobacco: Never Smokeless Tobacco: Never Tobacco Cessation:Counseling Given: Not Answered Alcohol Use Standard Drinks/Week Comments Yes 0 (1 standard drink = 0.6 oz pur e alcohol) occasional Sex and Gender Information Value Date Recorded Sex Assigned at Not on file Legal Sex Male 1:24 PM CDT Gender Identity Not on file Sexual Orientation Not on file Last Filed Vital Signs Vital Sign Reading Time Taken Comments Blood Pressure 118/69 06/11/2025 3:01 PM CDT Pulse 80 06/11/2025 3:01 PM CDT Temperature 36.8 C (98.2 F) 06/11/2025 3:01 PM CDT Respiratory Rate 16 06/11/2025 3:01 PM CDT Oxygen Saturation 94% 06/11/2025 3:01 PM CDT Inhaled Oxygen Concentration - - Weight 79 kg (174 lb 3.2 oz) 06/11/2025 3:01 PM CDT Height 182.9 cm (6') 06/11/2025 3:01 PM CDT Body Mass Index 23.63 06/11/2025 3:01 PM CDT Plan of Treatment Upcoming Encounters Date Type Department Care Team (Late st Contact Info) Description 07/11/2025 4:30 PM CDT Telephone Check Up [facility] Oncology and Hematology - [place] [address] [facility] [address] [place] [address] El Khan MD [address] [facility] [address] [place] [address] Health Maintenance Due Date Last Done Comments Traditional Medicare (ACO) A nnual Wellness Visit 1969 FIT-DNA Q 3 years 1995 FIT/FOBT Q 1 year 1995 Flex Sig/CT Colonography Q 5 years 1995 ZOSTER VACCINE (1 of 2) 2000 DTAP/TDAP/TD VACCINES (1 - Tdap) 11/19/2017 11/18/19 18 COVID-19 Vaccine (2023-2 5 season) 2024 09/02/2022, 10/22/2021, 02/17/2021, Additional history exists INFLUENZA VACCINE (#1) 2025 3, 08/19/2022, 08/13/2021, Additional history exists RSV VACCINE (60+ or ) (1 - 1-dose 75+ series) 2025 COLORECTAL SCREENING 09/20/2028 09/20/2018 Colorectal Cancer Screening 09/20/2028 PNEUMOCOCCAL VACCINE 50+ YEARS Completed 0 11/25/2021, 06/07/2018, 08/18/2016 Insurance MEDICARE PART A AND B BCBS [facility]
--- OUTSIDE RECORDS SUMMARY | 2025-06-11 16:22 | XMS_ITS | Encounter Summary ---
Author Organization [facility] Address [facility] [place] [address] Care Team Providers Care Health Technician Name Role Phone Bari Ballard MD Primary Care Provider [phone] Reason for Referral * Surgical (Routine) - New Request Specialty Diagnoses / Procedures Referred By Shari omer Referred To Contact Diagnoses Lumbar facet arthropathy Procedures Case request operating room: RADIOFREQUENCY LUMBAR-L2, 3, 4 Kenji Valencia CNP [address] [address] [address] Phone: tel: [phone] fax: Referral ID Status Reason Start Date Expiration Date V isits Requested Visits Authorized [id number] New Request 10/24/2024 10/24/2025 1 1 ENSION CORD TIER Encounter Details Date Type Department Care Team (Late st Contact Info) Description 10/24/2024 Prep for Procedure [facility] [place], [place] [id number] [facility] 3 [facility] [place] [phone] (Work) Social History Tobacco Use Types Packs/Day [...] Sex Assigned at Male 12/04/2024 9:39 AM SUSPENSION CORD TIER Legal Sex Male 7:23 PM CDT Gender [...] documented as of this encounter Care Teams Health Technician Relationship Specialty Start Date End Date Bari Ballard MD [address] [place] [address] PCP - General FAMILY PRACTICE 09/04/24 documented as of this encounter
--- OUTSIDE RECORDS SUMMARY | 2025-06-11 16:22 | XMS_ITS | Encounter Summary ---
Author Organization [facility] Address [facility] [place] [address] Care Team Providers Care Tour Narrator Name Role Phone Amy Cortes MD Primary Care Provider [phone] None, Provider MD Primary Care Provider [facility] Amy Cortes MD Primary Care Provider [phone] Bari Ballard MD Primary Care Provider [phone] Encounter Details Date Type Department Care Team (Late st Contact Info) Description 10/18/2023 Diligent Board Member Services Message Enc [facility] Medical Group Family & Internal Medicine [address] [address] Mychart, [facility] Provider Parking placard Social History Tobacco [...] Sex Assigned at Male 12/04/2024 9:39 AM GAS ENGINEER Legal Sex Male 7:23 PM CDT Gender Identity Not on file Sexual Orientation Not on file documented as of this encounter Progress Notes * Nenita Melendrez RN - 10/21/2023 2:35 PM CST Noted. ENGINEER * Skip Franco - 10/21/2023 1:40 PM CST Pt came by, signed the forms and took with him as he will take to [place]. ENGINEER documented in this encounter Plan of Treatment Not on file documented as of this encounter Visit Diagnoses Not on filedocumented in this encounter Additional Health Concerns Assessment Noted Time PHQ-9 Depression Total Score: 0 05/26/20 22 9:59 AM CDT documented as of this encounter Care Teams Tour Narrator Relationship Specialty [place] [address] [place] [address] PCP - General FAMILY PRACTICE 12/31/22 06/06/24 None, ProviderMD PCP - General UNKNOWN PHYSICIAN SPECIALTY 06/20/24 08/21/24 [place] [address] [place] [address] PCP - General FAMILY PRACTICE 08/22/24 09/03/24 Bari Ballard MD [address] [place] [address] PCP - General FAMILY PRACTICE 09/04/24 documented as of this encounter
--- OUTSIDE RECORDS SUMMARY | 2025-06-11 16:22 | XMS_ITS | Encounter Summary ---
Author Organization [facility] Address [facility] [place] [address] Care Team Providers Care Crossing Supervisor Name Role Phone Amy Cortes MD Primary Care Provider [phone] None, Provider MD Primary Care Provider Unavaila [facility] Amy Cortes MD Primary Care Provider [phone] Bari Ballard MD Primary Care Provider [phone] Encounter Details Date Type Department Care Team (Late st Contact Info) Description 08/16/2023 [email or web address] Message Enc [facility] Medical Group Family & Internal Medicine [address] [address] Alex, [facility] Provider results Social History Tobacco [...] Sex Assigned at Male 12/04/2024 9:39 AM DIRECTORY CARRIER Legal Sex Male 7:23 PM CDT Gender Identity Not on file Sexual Orientation Not on file documented as of this encounter Plan of Treatment Not on file documented as of this encounter Visit Diagnoses Not on filedocumented in this encounter Additional Health Concerns Assessment Noted Time PHQ-9 Depression Total Score: 0 05/26/20 22 9:59 AM CDT documented as of this encounter Care Teams Crossing Supervisor Relationship Specialty [place] [address] [place] [address] PCP - General FAMILY PRACTICE 12/31/22 06/06/24 None, Provider, PCP - General UNKNOWN PHYSICIAN SPECIALTY 06/20/24 08/21/24 [place] [address] [address] [place] [address] PCP - General FAMILY PRACTICE 08/22/24 09/03/24 Bari Ballard MD [address] [place] [address] PCP - General FAMILY PRACTICE 09/04/24 documented as of this encounter
--- OUTSIDE RECORDS SUMMARY | 2025-06-11 16:22 | XMS_ITS | Encounter Summary ---
Author Organization [facility] Address [facility] [place] [address] Care Team Providers Care Linker Up Name Role Phone Channing Barlow MD Primary Care Provider U Amy Camara MD Primary Care Provider [phone] None, Provider Primary Care Provider Unavaila ble Amy Cortes MD Primary Care Provider [phone] Bari Ballard MD Primary Care Provider [phone] Encounter Details Date Type Department Care Team (Late st Contact Info) Description 05/18/2017 Abstract [facility] CONVERSION [address] [place] [address] , Generic Conversion, Social History Tobacco Use Types Packs/Day Years Used Date Smoking Tobacco: Never Assessed Sex and Gender Information Value Date Recorded Sex Assigned at Male 12/04/2024 9:39 AM ARMED GUARD Legal Sex Male 7:23 PM CDT Gender Identity Not on file Sexual Orientation Not on file documented as of this encounter Plan of Treatment Not on file documented as of this encounter Visit Diagnoses Not on filedocumented in this encounter Care Teams Linker Up Relationship Specialty Start Date End Date Channing Barlow MD PCP - General INTERNAL MEDICINE 05/25/17 12/30/22 [place] [address] [address] [place] [address] PCP - General FAMILY PRACTICE 12/31/22 06/06/24 None, Provider, PCP - General UNKNOWN PHYSICIAN SPECIALTY 06/20/24 08/21/24 [place] [address] [facility] [address] PCP - General FAMILY PRACTICE 08/22/24 09/03/24 Bari Ballard MD [address] [place] [address] PCP - General FAMILY PRACTICE 09/04/24 documented as of this encounter
--- OUTSIDE RECORDS SUMMARY | 2025-06-11 16:22 | XMS_ITS | Encounter Summary ---
Author Organization [facility] Address [address] [place] [address] Care Team Providers Care Edge Dyer Name Role Phone Unavailable Primary Care Provider Unavailabl e Reason for Referral * Radiology Services (Routine) - Open Specialty Diagnoses / Procedures Referred By Contac t Referred To Contact Diagnoses Leukopenia, unspecified type Procedures US ABDOMEN COMPLETE El Khan MD [address] [place] [phone] Phone: tel: fax: [place] [phone] Referral ID Status Reason Start Date Expiration Date V isits Requested Visits Authorized [id number] Open STL CTS 06/11/2025 07/12/2026 1 1 Encounter Details Date Type Department Care Team (Late st Contact Info) Description 06/11/2025 3:00 PM CDT Office Visit [facility] Oncology and Hematology [place] [address] [address] [facility] [address] [place] [address] El Khan MD [address] [place] [address] Chronic anemia (Primary Dx); Leukopenia, unspecified type Social History Tobacco Use Types Packs/Day Years [...] on file documented as of this encounter Last Filed Vital Signs Vital Sign Reading [...] Mass Index 23.63 06/11/2025 3:01 PM CDT documented in this encounter Plan of Treatment Upcoming Encounters Date Type Department Care Team (Late st Contact Info) Description 07/11/2025 4:30 PM CDT Telephone Check Up [facility] Oncology and Hematology - [place] [address] [place] [address] [facility] [address] [place] [phone] El Khan MD [address] [facility] [address] [place] [address] Scheduled Orders Name Type Priority Associated Diagnoses Orde r Schedule CBC WITH DIFFERENTIAL Lab Stat Chronic anemia Expected: 06/11/2025, Expires: 06/11/2026 IVORY SCREEN W/REFLEX Lab Routine Leukopenia, unspecified type Expected: 06/11/2025, Expires: 06/11/2026 COMPREHENSIVE METABOLIC PANEL Lab Stat Chronic anemia Expected: 06/11/2025, Expires: 06/11/2026 FERRITIN Lab Routine Chronic anemia Expected: 06/11/2025, Expires: 06/11/2026 IRON, TIBC, AND PERCENT SATURATION Lab Routine Chronic anemia Expected: 06/11/2025, Expires: 06/11/2026 LACTATE DEHYDROGENASE Lab Routine Chronic anemia Expected: 06/11/2025, Expires: 06/11/2026 METHYLMALONIC ACID Lab Routine Chronic anemia Expected: 06/11/2025, Expires: 06/11/2026 TRANSFERRIN RECEPTOR TFR SOLUBLE Lab Routine Chronic anemia Expected: 06/11/2025, Expires: 06/11/2026 VITAMIN B12 AND FOLATE Lab Routine Chronic anemia Expected: 06/11/2025, Expires: 06/11/2026 FLOW CYTOMETRY PANEL Lab Routine Leukopenia, unspecified type Expected: 06/11/2025, Expires: 06/11/2026 US ABDOMEN COMPLETE Imaging Routine Leukopenia, unspecified type 1 Occurrences starting 06/11/2025 until 06/11/2026 documented as of this encounter Visit Diagnoses Diagnosis Chronic anemia- Primary Anemia, unspecified Leukopenia, unspecified type documented in this encounter
--- OUTSIDE RECORDS SUMMARY | 2025-06-11 16:22 | XMS_ITS | Encounter Summary ---
Author Organization [facility] Address [facility] [place] [address] Care Team Providers Care Special Collections Librarian Name Role Phone Amy Cortes MD Primary Care Provider None, Provider MD Primary Care Provider Unavaila [facility] Amy Cortes MD Primary Care Provider [phone] Bari Ballard MD Primary Care Provider [phone] Encounter Details Date Type Department Care Team (Late st Contact Info) Description 08/30/2023 Followap Message Enc [facility] Medical Group Family & Internal Medicine [address] [address] Alex, [facility] Provider pneumonia Social History Tobacco Use Types [...] Sex Assigned at Male 12/04/2024 9:39 AM BACK SIZER Legal Sex Male 7:23 PM CDT Gender Identity Not on file Sexual Orientation Not on file documented as of this encounter Plan of Treatment Not on file documented as of this encounter Visit Diagnoses Not on filedocumented in this encounter Additional Health Concerns Assessment Noted Time PHQ-9 Depression Total Score: 0 05/26/20 22 9:59 AM CDT documented as of this encounter Care Teams Special Collections Librarian Relationship Specialty [place] [address] [place] [address] PCP - General FAMILY PRACTICE 12/31/22 06/06/24 None, Provider, PCP - General UNKNOWN PHYSICIAN SPECIALTY 06/20/24 08/21/24 [place] [address] [address] [place] [address] PCP - General FAMILY PRACTICE 08/22/24 09/03/24 Bari Ballard MD [address] [place] [address] PCP - General FAMILY PRACTICE 09/04/24 documented as of this encounter
--- OUTSIDE RECORDS SUMMARY | 2025-06-11 16:22 | XMS_ITS | Clinical Summary ---
Author Organization [facility] Address [facility] [place] [address] Care Team Providers Care Cutter Plastics Rolls Name Role Phone Bari Ballard MD Primary Care Provider [phone] Allergies No known active allergies Medications atorvastatin [...] mouth 2 (two) times daily. 5 Active omeprazole (PRILOSEC) 20 MG capsule Take 1 capsule (20 mg total) by mouth daily. 5 Active Active Problems Problem Noted Date Diagnosed Date Lumbar facet arthropathy 08/04/2023 Overview (08/04/2023): Added automatically from request for surgery [id number] Erectile dysfunction, unspecified erectile dysfu nction type [...] Encounters Date Type Department Care Team Description 04/11/2025 12:00 PM CDT - 04/11/2025 12:20 PM CDT Surgery [facility] Interventional [place] [address] [id number] Erika Short MD INJECTION EPIDURAL [id number] , [id number] 04/11/2025 10:47 AM CDT - 04/11/2025 11:58 AM CDT Hospital Encounter [facility] [place]ventional [place] [address] [id number] Erika Short MD Discharge Disposition: Home or Self Care (Routine Discharge) 04/11/2025 Travel 04/11/2025 Hospital Encounter [facility] [place]ventional [place] [address] [id number] Erika Short MD from Last 3 Months Immunizations Immunization Administration Dates Next Due Fluzone High Dose - >Age 65 (Prefilled Syringe) 08/12/2023,08/19/2022,08/13/2021,2019,08/07/2019,09/26/2017 Influenza (Generic) 07/30/2016, 5,08/27/2015,2013,09/05/2013 Influenza Adult (Generic) 08/21/2018,,07/30/2016,2014,09/06/2014 MODERNA COVID-19 (12+) MRNA, LNP-S, PF, 100 MCG/ 0.5 ML DOSE 02/17/2021,01/20/2021 MODERNA COVID-19 (COMPUTED TOMOGRAPHY TECHNICIAN TIERA RAMILA), MRNA, LNP-S, PF, 50 MCG/ [...] Sex Assigned at Male 12/04/2024 9:[address]MINISTRATOR Legal Sex Male 7:23 PM CDT Gender Identity Not on file Sexual Orientation Not on file Last Filed Vital Signs Vital Sign Reading Time Taken Comments Blood Pressure 114/67 04/11/2025 11:51 AM CDT Pulse 81 04/11/2025 11:51 AM CDT Temperature 36.8 C (98.2 F) 04/11/2025 11:25 AM CDT Respiratory Rate 18 04/11/2025 11:51 AM CDT Oxygen Saturation 100% 04/11/2025 11:51 AM CDT Inhaled Oxygen Concentration - - Weight 83.9 kg (185 lb) 04/11/2025 11:25 AM CDT Height 182.9 cm (6') 04/11/2025 11:25 AM CDT Body Mass Index 25.09 04/11/2025 11:25 AM CDT Plan of Treatment Health Maintenance Due Date Last Done Comments Hepatitis C 1968 Zoster Vaccines (1 of 2) 2000 Annual Medicare Wellness Visit 2015 DTaP, Tdap and Td Vaccines (1 - Tdap) 11/19/2017 11/18/2017, 11/18/2017, 11/18/2017 COVID-19 Vaccine (5 - season) 2024 09/02/2022, 10/22/2021, 02/17/2021, Additional history exists PHQ-2 (Physician [place]) 11/14/2024 12/07/2023 RSV Immunization or 60+ Years (1 - 1-dose 75+ series) 2025 Colorectal Cancer Screening Colonoscopy (10 Years) 09/20/2028 09/20/2018, 08/30/2018 Pneumococcal Vaccine: 50+ Years Completed 11/25/2021, 06/07/2018, 08/18/2016 Meningococcal B [...] Procedure Name Priority Date/Time Associated Diagnosis Comments INJ,FORAMEN,L/S,ADDL LEVELS 04/11/2025 11:44 AM CDT Lumbar radiculopathy NJX AA&/STRD TFRML EPI LUMBAR/SACRAL 1 LEVEL 04/11/2025 11:44 AM CDT Lumbar radiculopathy XR PAIN CLINIC C-ARM Today 04/11/2025 10:50 AM CDT COLONOSCOPY GENERIC (SCAN ORDER) Routine 09/20/2018 from Last 3 Months or Most Recently Relevant to Health Maintenance Results * XR PAIN CLINIC C-ARM (04/11/2025 10:50 AM CDT) Narrative Radiology, Technologist - 04/11/2025 10:50 AM CDT This report does not contain a radiologist's interpretation. Please review associated procedure and/or operative report. us Erika Short MD GENERAL IMAGING Final Result * COLONOSCOPY (09/20/2018) us Documents Scanned SCANNING Final Result from Last 3 Months or Most Recently Relevant to Health Maintenance Insurance MEDICARE [facility] MEDICARE Care Teams Cutter Plastics Rolls Relationship Specialty Start Date End Date Bari Ballard MD [address] [place] [address] PCP - General FAMILY PRACTICE 09/04/24
--- NOTE | 2025-06-11 16:56 | CY_PTH ---
PATIENT: Zechariah Liriano LOC: ANHLAB #:[id number] AGE/SX: 74/M ROOM: RE06/11/[address]: El Khan MD : 1950 BED: DIS: 06/11/2025 SPEC #: [id number] RECD: 06/12/25 06:43 STATUS: ELSY REQ #: [id number] DUSTY: 06/11/25 16:[address]: El Khan DEPT: [facility] Cytology RECD BY: Edita Hager ENTERED: 06/12/25 06:44 SP TYPE: Cytology OTHR DR: Bari Ballard MD Tissues: A - Flow Procedures: Flow Cytometry
[2025-06-11 17:23] LABS: Hematocrit 33.8 % (42.0-52.0); Hemoglobin 11.7 g/dL (14.0-18.0); Immature Granulocyte Percent A 0.4 % (0-0.5); Lymphocytes Absolute Auto 0.60 K/mm3 (0.9-3.2); Mean Corpuscular HGB Conc 34.6 g/dl (32-36); Mean Corpuscular Hemoglobin 36.7 pg (26-34); Mean Corpuscular Volume 106.0 fl (80-100); Nucleated Red Blood Cells Absolute Auto 0.000 K/mm3 (0.0-0.012); Nucleated Red Blood Cells Perc 0.0 % (0.0-0.2); Platelet Count Result 162 k/mm3 (150-375); Red Blood Count 3.19 M/mm3 (4.6-6.20); White Blood Count 2.6 K/mm3 (4.5-10.0)
[2025-06-11 17:43] LABS: Alanine Aminotransferase 18 U/L (6-50); Albumin Level 4.2 g/dL (3.5-5.1); Alkaline Phosphatase 37 U/L (38-126); Anion Gap 7 mmol/L (4-12); Aspartate Amino Transferase 30 U/L (17-59); Bilirubin,Total 1.5 mg/dL (0.2-1.3); Blood Urea Nitrogen 8 mg/dL (9-20); Calcium 9.3 mg/dL (8.4-10.2); Carbon Dioxide 23 mmol/L (22-30); Chloride 100 mmol/L (98-107); Estimated Glomerular Filt Rate > 60; Glucose 90 mg/dL (65-110); Potassium 3.9 mmol/L (3.4-5.0); Sodium 130 mmol/L (137-145); Total Protein 6.7 g/dL (6.3-8.2)
[2025-06-11 17:47] LABS: Iron 154 ug/dL (49-181)
[2025-06-11 17:56] LABS: Percent Iron Saturation 79 % (20-50)
[2025-06-11 18:30] LABS: Ferritin 654.00 ng/mL (11.1-264)
[2025-06-11 19:54] LABS: Vitamin B12 535.0 pg/mL (239-931)
[2025-06-14 11:08] LABS: ANA by IFA Rfx Titer/Pattern Negative (.)
== END 2025-06-11 16:17 | disposition home or self-care (01) ==
LOC: ANHLAB 16:20
PROVIDERS: PCP Family Medicine; Visit Provider Internal Medicine Hematology & Oncology
DX: D64.9 Anemia, unspecified (principal); D72.819 Decreased white blood cell count, unspecified
CPT/HCPCS: 36415; 80053; 82607; 82728; 82746; 83540; 83550; 83615; 83921; 84238; 85025; 86038; 88184

== ENCOUNTER 2025-07-17 07:54 | Outpatient (CLI) | payer MEDICARE, SELFPAY ==
--- OUTSIDE RECORDS SUMMARY | 2010-03-10 09:00 | XMS_ITS | Continuity of Care Document ---
Author Organization [facility] Address [address] [place] [address] Phone Care Team Providers Care Boiling House Hand Name Role Phone Sammy RUBIO MD, Peter Unavailable Unavaila ble Procedures Procedure Date Work/medical disability examination [facility] X-ray exam of knee, 1 or2 views 010 X-ray exam of both knees, standing Prolonged serv, w/o contact, 1st hr Advance Directives Directive Yes / No Effective Date File Name No Information Encounters Encounter Description Practice Location Reason(s) For Visit Diagnoses Date Provider Providers Copied on Encounter Work/medical disability examination [facility] [employer], [address] [facility], [place], [place], [id number], [place] tel:[phone] [facility] [employer] [facility] No Information 0 Sammy Green. [address] [place] [address], [place], [place], [id number] , . tel: [phone] Family History Family Member Type Diagnosis Age At Onset No Information Payers Payer name Insurance type Covered green party ID Katharine smallwood(s) Elan [id number] Social History Type Description Quantity Date Captured Comments Sex Male Smoking Status No Information Chief Complaint And Reason For Visit No Information Reason For Referral Reason For Referral No Information History Of Present Illness Encounter Date Complaint History Of Prese nt Illness No Information Functional Status Date Functional Assessmen t No Information Instructions Date Instruction Additional Infor mation No Information Assessments Type Assessment Date No Information Patient Care Teams Name Effective Dates (start - stop) Status Members No Information
--- NOTE | ~2025-07-17 | US_ITS ---
EXAMINATION: US abdomen complete DATE: 07/17/2025 09:45 INDICATION: Leukopenia TECHNIQUE: Multiple grayscale and Doppler ultrasound images of the abdomen were obtained. COMPARISON: None FINDINGS: The pancreatic head and body are normal in appearance. The pancreatic tail is not visualized. Liver has normal echogenicity and contour, with a smooth surface. No liver lesion identified. No intrahepatic biliary duct dilation suspected. Portal venous flow was seen in the hepatopetal, normal direction and has normal Doppler waveform. The gallbladder is normal in appearance. There is no cholelithiasis. The common bile duct measures 3 mm, which is normal. Sonographic Contreras sign was reported as negative by the emulsification operator. There is normal renal contour and echogenicity bilaterally. The right kidney measures 11.3 x 5.4 x 5.4 cm and the left 12.8 x 6.5 x 6.7 cm. 8 mm exophytic anechoic cyst at the lower pole the right kidney. Additional 1.7 cm anechoic cyst at the upper pole of the left kidney. There is no hydronephrosis. The visualized proximal inferior vena cava and aorta are normal. The distal aorta is also normal measuring 1.9 cm in maximal diameter. The mid aorta is obscured by shadowing bowel gas. Normal spleen measuring 10.8 cm in maximal length. IMPRESSION: 1. Small bilateral renal cysts. Otherwise unremarkable abdominal ultrasound. Reviewed, dictated and finalized at location A.
--- OUTSIDE RECORDS SUMMARY | 2025-07-17 07:59 | XMS_ITS | Clinical Summary ---
Author Organization [facility] Johnie walker [place] Address [address] [place] [address] Care Team Providers Care District Claims Manager Name Role Phone Unavailable Primary Care Provider [...] Encounters Date Type Department Care Team Description 06/19/2025 External Device Data STL ABSTRACTION Provider, Abstract 06/18/2025 External Device Data [facility] ABSTRACTION Provider, Abstract 06/18/2025 External Device Data [facility] ABSTRACTION Provider, Abstract 06/17/[address] [facility] Oncology and Hematology - [place] [address] [place] [address] El Khan MD lab results 06/17/[address] [facility] Oncology and Hematology - [place] [address] [facility] [place] [address] El Khan MD 06/14/[address] [facility] Oncology and Hematology - [place] [address] [place] [address] El Khan MD 06/12/[address] [facility] Oncology and Hematology - [place] [address] [place] [address] El Khan MD 06/11/2025 3:00 PM CDT Office Visit [facility] Oncology and Hematology - [place] [address] [place] [address] El Khan MD Chronic anemia [...] Care Team (Late st Contact Info) Description 07/24/2025 4:00 PM CDT Telephone Check Up [facility] Oncology and Hematology - [place] [address] [place] [address] Gracie Torrez MD [address] [place] [address] Health Maintenance Due Date Last Done Comments FIT-DNA Q 3 years 1995 FIT/FOBT Q 1 year 1995 Flex Sig/CT Colonography Q 5 years 1995 DTAP/TDAP/TD VACCINES (1 - Tdap) 11/19/2017 11/18/19 18 ZOSTER VACCINE (2 of 2) 09/02/2023 07/08/2023 COVID-19 Vaccine (5 - 2023-2 5 season) 2024 09/02/2022, 10/22/2021, 02/17/2021, Additional history exists INFLUENZA VACCINE (#1) 2025 , 08/19/2022, 08/13/2021, Additional history exists RSV VACCINE (60+ or ) (1 - 1-dose 75+ series) 2025 COLORECTAL SCREENING 09/20/2028 09/20/2018 Colorectal Cancer Screening 09/20/2028 PNEUMOCOCCAL VACCINE 50+ YEARS Completed 0 11/25/2021, 06/07/2018, 08/18/2016 Procedures Procedure Name Priority Date/Time Associated Diagnosis Comments FLOW CYTOMETRY REPORT Routine 06/12/2025 10:13 AM CDT COMPREHENSIVE METABOLIC PANEL Routine 06/11/2025 1:50 PM CDT METHYLMALONIC ACID Routine 06/11/2025 10 :36 AM CDT CHG SOLUBLE TRANSFERRIN RECEPTOR Routine 06/11/2025 10:32 AM CDT IVORY PANEL Routine 06/11/2025 10:15 AM CDT from Last 3 Months Results * FLOW CYTOMETRY REPORT (06/12/2025 10:13 AM CDT) El Khan MD PATHOLOGY/CYTOLOGY ORDERABLES F inal Result * COMPREHENSIVE METABOLIC PANEL (06/11/2025 1:50 PM CDT) Blood El Khan MD CHEMISTRY ORDERABLES Final Resu lt * METHYLMALONIC ACID (06/11/2025 10:36 AM CDT) Blood El Khan MD CHEMISTRY ORDERABLES Final Resu lt * CHG SOLUBLE TRANSFERRIN RECEPTOR (06/11/2025 10:32 AM CDT) El Khan MD CHG - LABORATORY Final Result * IVORY PANEL (06/11/2025 10:15 AM CDT) Blood El Khan MD CHEMISTRY ORDERABLES Final Resu lt from Last 3 Months Insurance MEDICARE PART A AND B [facility]
--- OUTSIDE RECORDS SUMMARY | 2025-07-17 07:59 | XMS_ITS | Encounter Summary ---
Author Organization [facility] Address [facility] [place] [address] Care Team Providers Care Workflow Developer Name Role Phone Channing Barlow MD Primary Care Provider U Amy Camara MD Primary Care Provider [phone] None, Provider Primary Care Provider Unavaila Amy Gilliam MD Primary Care Provider [phone] Bari Ballard MD Primary Care Provider [phone] Encounter Details Date Type Department Care Team (Late st Contact Info) Description 12/02/2015 Abstract [facility] CONVERSION [address] [place] [address] , Generic Conversion, Social History Tobacco Use Types Packs/Day Years Used Date Smoking Tobacco: Never Assessed Sex and Gender Information Value Date Recorded Sex Assigned at Male 12/04/2024 9:39 AM RESOURCE RECOVERY SPECIALIST Legal Sex Male 7:23 PM CDT Gender Identity Not on file Sexual Orientation Not on file documented as of this encounter Plan of Treatment Upcoming Encounters Date Type Department Care Team (Latest Contact Info) Description 08/27/2025 2:20 PM CDT Hospital Encounter [facility] Interventional [place] [address] [id number] Erika Short MD Three [facility] [address] [place] [address] 08/27/2025 2:20 PM CDT - 08/27/2025 2:40 PM CDT Surgery [facility] Interventional [place] [address] [id number] Erika Short MD Three [facility] [address] [place] [address] INJECTION EPIDURAL TRANSFORAMINAL l45 and l5s1 Scheduled Procedures Name Priority Associated Diagnoses Date/Ti me INJECTION EPIDURAL TRANSFORAMINAL Lumbar radiculopathy 08/27/2025 2:20 PM CDT documented as of this encounter Visit Diagnoses Not on filedocumented in this encounter Care Teams Workflow Developer Relationship Specialty Start Date End Date Channing Barlow MD PCP - General INTERNAL MEDICINE 05/25/17 12/30/22 [place] [address] [place] [address] PCP - General FAMILY PRACTICE 12/31/22 06/06/24 Ben Rowland MD PCP - General UNKNOWN PHYSICIAN SPECIALTY 06/20/24 08/21/24 [place] [address] [place] [address] PCP - General FAMILY PRACTICE 08/22/24 09/03/24 Bari Ballard MD [address] [place] [address] PCP - General FAMILY PRACTICE 09/04/24 documented as of this encounter
--- OUTSIDE RECORDS SUMMARY | 2025-07-17 07:59 | XMS_ITS | Encounter Summary ---
Author Organization [facility] Address [facility] [place] [address] Care Team Providers Care Research Aide Name Role Phone Amy Cortes MD Primary Care Provider [phone] None, Provider MD Primary Care Provider Unavaila [facility] Amy Cortes MD Primary Care Provider [phone] Bari Ballard MD Primary Care Provider [phone] Encounter Details Date Type Department Care Team (Late st Contact Info) Description 08/30/2023 MyChart Message Enc [facility] Medical Group Family & Internal Medicine [address] [address] Mycdarylt, [facility] Provider pneumonia Social History Tobacco Use Types [...] Assigned at Male 12/04/2024 9:39 AM GAS DISTRIBUTION AND EMERGENCY CLERK Legal Sex Male 7:23 PM CDT Gender Identity Not on file Sexual Orientation Not on file documented as of this encounter Plan of Treatment Upcoming Encounters Date Type Department Care Team (Latest Contact Info) Description 08/27/2025 2:20 PM CDT Hospital Encounter [facility] Interventional [place] [address] [id number] Erika Short MD Three [facility] [address] [place] [address] 08/27/2025 2:20 PM CDT - 08/27/2025 2:40 PM CDT Surgery [facility] Interventional [place] [address] [id number] Erika Short MD Three [facility] [address] [place] [address] INJECTION EPIDURAL TRANSFORAMINAL l45 and l5s1 Scheduled Procedures Name Priority Associated Diagnoses Date/Ti me INJECTION EPIDURAL TRANSFORAMINAL Lumbar radiculopathy 08/27/2025 2:20 PM CDT documented as of this encounter Visit Diagnoses Not on filedocumented in this encounter Additional Health Concerns Assessment Noted Time PHQ-9 Depression Total Score: 0 05/26/20 9:59 AM CDT documented as of this encounter Care Teams Research Aide Relationship Specialty [place] [address] [place] [address] PCP - General FAMILY PRACTICE 12/31/22 06/06/24 None, MD Ben PCP - General UNKNOWN PHYSICIAN SPECIALTY 06/20/24 08/21/24 [place] [address] [place] [address] PCP - General FAMILY PRACTICE 08/22/24 09/03/24 Bari Ballard MD [address] [place] [address] PCP - General FAMILY PRACTICE 09/04/24 documented as of this encounter
--- OUTSIDE RECORDS SUMMARY | 2025-07-17 07:59 | XMS_ITS | Encounter Summary ---
Author Organization [facility] Address [facility] [place] [address] Care Team Providers Care Final Operations Technician Name Role Phone Bari Ballard MD Primary Care Provider [phone] Reason for Visit * Auth/Cert (Routine) Specialty Diagnoses / Procedures Referred By Contac t Referred To Contact Diagnoses Lumbar facet arthropathy lumbar facet arthropathy Procedures INJ PARAVERTEBRAL FACET JOINT W IMAGE SINGL INJ PARAVERTEBRAL FACET JOINT W IMAGE SINGL INJ DIAGNOSTIC OR THERAPEUTIC W IMAGE GUIDE INJECTION FACET JOINT-L2-3, L3-4 Eirka Short MD Three [facility] [address] [place] [address] Phone: tel: fax: Referral ID Status Reason Start Date Expiration Date Visits Re quested Visits Authorized [id number] 1 1 Encounter Details Date Type Department Care Team (Late st Contact Info) Description 04/11/2025 Hospital Encounter [facility] Interventional Pain Management Center [address] [place], [place] [address] [id number] Erika Short MD Three [facility] [address] [place] [address] Social History Tobacco Use Types Packs/Day [...] Sex Assigned at Male 12/04/2024 9:39 AM PROTECTION SPECIALIST Legal Sex Male 7:23 PM CDT Gender Identity Not on file Sexual Orientation Not on file documented as of this encounter Functional Status * Calculated C-SSRS Risk Score (Lifetime/Recent) Answer Date of Assessment Author Status No Risk Indicated 04/11/2025 11:16 AM CDT Wanda Gomes RN Active * [place] Suicide Severity Rating Scale (Screener/Recent Self-Report) Question Answer Date of Assessment Author Status 1. Wish to be (Past 1 Month) No 04/11/2025 11:16 AM MAIRAT Wanda Gomes RN Activ e 2. Non-Specific Active Suicidal Thoughts (Past 1 Month) No 04/11/2025 11:16 AM CDT Wanda Gomes RN Activ e 6. Suicidal Behavior (Lifetime) No 12/31/2024 10:03 AM PROTECTION SPECIALIST Elif Low RN A ctive documented as of this encounter Plan of Treatment Upcoming Encounters Date Type Department Care Team (Latest Contact Info) Description 08/27/2025 2:20 PM CDT Hospital Encounter [facility] Interventional [place] [address] [id number] Erika Short MD Three [facility] [address] [place] [address]294[address] 08/27/2025 2:20 PM CDT - 08/27/2025 2:40 PM CDT Surgery [facility] [place]ventional [place] [address] [id number] Erika Short MD Three [facility] [address] [place] [address] INJECTION EPIDURAL TRANSFORAMINAL l45 and l5s1 Scheduled [...] documented as of this encounter Care Teams Final Operations Technician Relationship Specialty Start Date End Date Bari Ballard MD [address] [place] [address] PCP - General FAMILY PRACTICE 09/04/24 documented as of this encounter
--- OUTSIDE RECORDS SUMMARY | 2025-07-17 07:59 | XMS_ITS | Encounter Summary ---
Author Organization [facility] Address [facility] [place] [address] Care Team Providers Care Service Center Assistant Name Role Phone Bari Ballard MD Primary Care Provider [phone] Reason for Referral * Surgical (Routine) - New Request Specialty Diagnoses / Procedures Referred By Shari omer Referred To Contact Diagnoses Lumbar facet arthropathy Procedures Case request operating room: RADIOFREQUENCY LUMBAR-L2, 3, 4 Kenji Valencia CNP [address] [address] Phone: tel: [phone] fax: Referral ID Status Reason Start Date Expiration Date V isits Requested Visits Authorized [id number] New Request 10/24/2024 10/24/2025 1 1 RVISOR MATRIX Encounter Details Date Type Department Care Team (Late st Contact Info) Description 10/24/2024 Prep for Procedure [facility] [address] [facility] [place] [place] [id number] Kenji Valencia CNP [address] [facility] [phone] (Work) Social History Tobacco Use Types Packs/Day [...] Sex Assigned at Male 12/04/2024 9:39 AM SUPERVISOR MATRIX Legal Sex Male 7:23 PM CDT Gender Identity Not on file Sexual Orientation Not on file documented as of this encounter Plan of Treatment Upcoming Encounters Date Type Department Care Team (Latest Contact Info) Description 08/27/2025 2:20 PM CDT Hospital Encounter [facility] [place] [address] [id number] Erika Short MD [address] [address] 08/27/2025 2:20 PM CDT - 08/27/2025 2:40 PM CDT Surgery [facility] [place]ventional [place] [address] [id number] Erika Short MD [address] [address] INJECTION EPIDURAL TRANSFORAMINAL l45 and l5s1 Scheduled Procedures Name Priority Associated Diagnoses Date/Ti me INJECTION EPIDURAL TRANSFORAMINAL Lumbar radiculopathy 08/27/2025 2:20 PM CDT documented as of this encounter Visit Diagnoses Diagnosis Lumbar facet arthropathy- Primary Lumbosacral spondylosis without myelopathy Lumbar radiculopathy Thoracic or lumbosacral neuritis or radiculitis, unspecified documented in this encounter Additional Health Concerns Assessment Noted Time PHQ-9 Depression Total Score: 0 05/26/20 22 9:59 AM CDT documented as of this encounter Care Teams Service Center Assistant Relationship Specialty Start Date End Date Bari Ballard MD [address] [place] [address] PCP - General FAMILY PRACTICE 09/04/24 documented as of this encounter
--- OUTSIDE RECORDS SUMMARY | 2025-07-17 07:59 | XMS_ITS | Encounter Summary ---
Author Organization [facility] Address [facility] [place] [address] Care Team Providers Care Religious Education Teacher Name Role Phone Amy Cortes MD Primary Care Provider [phone] None, Provider MD Primary Care Provider [facility] Amy Cortes MD Primary Care Provider [phone] Bari aBllard MD Primary Care Provider [phone] Encounter Details Date Type Department Care Team (Late st Contact Info) Description 10/18/2023 DoApp Message Enc [facility] Medical Group Family & Internal Medicine [address] [address] Mychart, 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 ON PAPER MACHINE OPERATOR * Dawnivet Salvador - 10/21/2023 1:40 PM CST Pt came by, signed the forms and took with him as he will take to [place]. ON PAPER MACHINE OPERATOR documented in this encounter Plan of Treatment Upcoming Encounters Date Type Department Care Team (Latest Contact Info) Description 08/27/2025 2:20 PM CDT Hospital Encounter [facility] [place]ventional [place] [address] [id number] Erika Short MD Three [facility] [address] [place] [address] 08/27/2025 2:20 PM CDT - 08/27/2025 2:40 PM CDT Surgery [facility] Interventional [place] [address] [id number] Erika Short MD Three [facility] [address] [place] [address] INJECTION EPIDURAL TRANSFORAMINAL l45 and l5s1 Scheduled Procedures Name Priority Associated Diagnoses Date/Ti me INJECTION EPIDURAL TRANSFORAMINAL Lumbar radiculopathy 08/27/2025 2:20 PM CDT documented as of this encounter Visit Diagnoses Not on filedocumented in this encounter Additional Health Concerns Assessment Noted Time PHQ-9 Depression Total Score: 0 05/26/20 22 9:59 AM CDT documented as of this encounter Care Teams Religious Education Teacher Relationship Specialty [place] [address] [address] [place] [phone] PCP - General FAMILY PRACTICE 12/31/22 06/06/24 None, Provider, PCP - General UNKNOWN PHYSICIAN SPECIALTY 06/20/24 08/21/24 [place] [address] [address] PCP - General FAMILY PRACTICE 08/22/24 09/03/24 Bari Ballard MD [address] [place] [address] PCP - General FAMILY PRACTICE 09/04/24 documented as of this encounter
--- OUTSIDE RECORDS SUMMARY | 2025-07-17 07:59 | XMS_ITS | Encounter Summary ---
Author Organization [facility] Address [facility] [place] [address] Care Team Providers Care Call Circuit Worker Name Role Phone Channing Barlow MD Primary Care Provider U Amy Camara MD Primary Care Provider [phone] None, Provider Primary Care Provider Unavaila Amy Gilliam MD Primary Care Provider [phone] Bari Ballard MD Primary Care Provider [phone] Encounter Details Date Type Department Care Team (Late st Contact Info) Description 05/18/2017 Abstract [facility] CONVERSION [address] [place] [address] , Generic Conversion, Social History Tobacco Use Types Packs/Day Years Used Date Smoking Tobacco: Never Assessed Sex and Gender Information Value Date Recorded Sex Assigned at Male 12/04/2024 9:39 AM TIRE SERVICE TECHNICIAN Legal Sex Male 7:23 PM CDT Gender Identity Not on file Sexual Orientation Not on file documented as of this encounter Plan of Treatment Upcoming Encounters Date Type Department Care Team (Latest Contact Info) Description 08/27/2025 2:20 PM CDT Hospital Encounter [facility] Interventional [place] [address] [id number] Erika Short MD Three [facility] [address] [place] [address] 08/27/2025 2:20 PM CDT - 08/27/2025 2:40 PM CDT Surgery [facility] Interventional Pain [place] [address] [id number] Erika Short MD Three [facility] [address] [place] [address] INJECTION EPIDURAL TRANSFORAMINAL l45 and l5s1 Scheduled Procedures Name Priority Associated Diagnoses Date/Ti me INJECTION EPIDURAL TRANSFORAMINAL Lumbar radiculopathy 08/27/2025 2:20 PM CDT documented as of this encounter Visit Diagnoses Not on filedocumented in this encounter Care Teams Call Circuit Worker Relationship Specialty Start Date End Date Channing Barlow MD PCP - General INTERNAL MEDICINE 05/25/17 12/30/22 [place] [address] [address] [place] [address] PCP - General FAMILY PRACTICE 12/31/22 06/06/24 Ben Rowland MD PCP - General UNKNOWN PHYSICIAN SPECIALTY 06/20/24 08/21/24 [place] [address] [address] [place] [address] PCP - General FAMILY PRACTICE 08/22/24 09/03/24 Bari Ballard MD [address] [place] [address] PCP - General FAMILY PRACTICE 09/04/24 documented as of this encounter
--- OUTSIDE RECORDS SUMMARY | 2025-07-17 07:59 | XMS_ITS | Clinical Summary ---
Author Organization [facility] Address [facility] [place] [address] Care Team Providers Care Deputy Commissioner Name Role Phone Bari Ballard MD Primary Care Provider [phone] Allergies No known active allergies Medications atorvastatin [...] (08/04/2023): Added automatically from request for surgery [id number] Erectile dysfunction, unspecified erectile dysfu nction type [...] Leucopenia 04/10/2014 05/22/2019 Polyosteoarthritis, unspecified 09/09/2013 11/27/2020 Immunizations Immunization Administration Dates Next Due Fluzone High Dose - >Age 65 (Prefilled Syringe) 08/12/2023,08/19/2022,08/13/2021,2019,08/07/2019,09/26/2017 Influenza (Generic) 07/30/2016, 5,08/27/2015,2013,09/05/2013 Influenza Adult (Generic) 08/21/2018,,07/30/2016,2014,09/06/2014 MODERNA COVID-19 (12+) MRNA, LNP-S, PF, 100 MCG/ 0.5 ML DOSE 02/17/2021,01/20/2021 MODERNA COVID-19 (ELECTRICITY TRADER TIERA RAMILA), MRNA, LNP-S, PF, 50 MCG/ [...] Sex Assigned at Male 12/04/2024 9:39 AM NUTRITION ASSISTANT Legal Sex Male 7:23 PM CDT Gender [...] 04/11/2025 11:25 AM CDT Plan of Treatment Upcoming Encounters Date Type Department Care Team (Latest Contact Info) Description 08/27/2025 2:20 PM CDT Hospital Encounter [facility] Interventional [place] [address] [id number] Erika Short MD Three [facility] Suite [facility] [place] [address] 08/27/2025 2:20 PM CDT - 08/27/2025 2:40 PM CDT Surgery [facility] Interventional [place] [address] [id number] Erika Short MD Three [facility] [address] [place] [address] INJECTION EPIDURAL TRANSFORAMINAL l45 and l5s1 Scheduled Procedures Name Priority Associated Diagnoses Date/Ti me INJECTION EPIDURAL TRANSFORAMINAL Lumbar radiculopathy 08/27/2025 2:20 PM CDT Health Maintenance Due Date Last Done Comments Hepatitis C 1968 Zoster Vaccines (1 of 2) 2000 Annual Medicare Wellness Visit 2015 DTaP, Tdap and Td Vaccines (1 - Tdap) 11/19/2017 11/18/2017, 11/18/2017, 11/18/2017 COVID-19 Vaccine (5 - season) 2024 09/02/2022, 10/22/2021, 02/17/2021, Additional history exists PHQ-2 (Physician [place]) 11/14/2024 12/07/2023 RSV Immunization or 60+ Years [...] on patient's age to complete this topic Goals Goal Patient Goal Type Associated Problems Recent Progress Patient-Stated? Author Autogenera clemencia Goal Care Plan Autogenerated Problem No Chanda uY V Procedures Procedure Name Priority Date/Time Associated Diagnosis Comments COLONOSCOPY GENERIC (SCAN ORDER) Routine 09/20/2018 from Last 3 Months or Most Recently Relevant to Health Maintenance Results * COLONOSCOPY (09/20/2018) us Documents Scanned SCANNING Final Result from Last 3 Months or Most Recently Relevant to Health Maintenance Additional Health Concerns Active Problems Noted Date Diagnosed Date Autogenerated Problem 07/09/2025 Insurance MEDICARE [facility] MEDICARE Care Teams Deputy Commissioner Relationship Specialty Start Date End Date Bari Ballard MD [address] [place] [address] PCP - General FAMILY PRACTICE 09/04/24
--- OUTSIDE RECORDS SUMMARY | 2025-07-17 07:59 | XMS_ITS | Encounter Summary ---
Author Organization [facility] Address [facility] [place] [address] Care Team Providers Care Web Development Director Name Role Phone Amy Cortes MD Primary Care Provider [phone] None, Provider MD Primary Care Provider [facility] Amy Cortes MD Primary Care Provider [phone] Bari Ballard MD Primary Care Provider [phone] Encounter Details Date Type Department Care Team (Late st Contact Info) Description 08/16/2023 zerobound Message Enc [facility] Medical Group Family & Internal Medicine [address] [address] [facility] Provider results Social History Tobacco Use Types [...] Sex Assigned at Male 12/04/2024 9:39 AM 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 [address] [place] [address] 08/27/2025 2:20 PM CDT - 08/27/2025 2:40 PM CDT Surgery [facility] Interventional Pain [place] [address] [id number] Erika Short MD Three [facility] [address] [place] [address] INJECTION EPIDURAL TRANSFORAMINAL l45 and l5s1 Scheduled Procedures Name Priority Associated Diagnoses Date/Ti me INJECTION EPIDURAL TRANSFORAMINAL Lumbar radiculopathy 08/27/2025 2:20 PM CDT documented as of this encounter Visit Diagnoses Not on filedocumented in this encounter Additional Health Concerns Assessment Noted Time PHQ-9 Depression Total Score: 0 05/26/20 9:59 AM CDT documented as of this encounter Care Teams Web Development Director Relationship Specialty [place] [address] [place] [address] PCP - General FAMILY PRACTICE 12/31/22 06/06/24 None, MD Ben PCP - General UNKNOWN PHYSICIAN SPECIALTY 06/20/24 08/21/24 [place] [address] [place] [address] PCP - General FAMILY PRACTICE 08/22/24 09/03/24 Bari Ballard MD [address] [place] [address] PCP - General FAMILY PRACTICE 09/04/24 documented as of this encounter
== END 2025-07-17 07:55 | disposition home or self-care (01) ==
PROVIDERS: PCP Family Medicine; Visit Provider Internal Medicine Hematology & Oncology
DX: D72.819 Decreased white blood cell count, unspecified (principal); N28.1 Cyst of kidney, acquired
CPT/HCPCS: 76700

== ENCOUNTER 2025-07-23 00:09 | Day surgery (SDC) | payer MEDICARE, SELFPAY ==
--- OUTSIDE RECORDS SUMMARY | 2010-03-10 09:00 | XMS_ITS | Continuity of Care Document ---
Author Organization [facility] Address [address] [place] [address] Phone Care Team Providers Care Piper Helper Name Role Phone Sammy RUBIO MD, Peter [...] Providers Copied on Encounter Work/medical disability examination [facility] [employer], [address] [facility], [place], [place], [id number], [place] tel:[phone] [facility] [employer] [facility] No Information 0 Sammy Green. [address] [facility], [place] [address], [place], [place], [id number] , . tel: [phone] Family History Family Member Type Diagnosis Age At Onset No Information Payers Payer name Insurance type Covered alliance party ID Katharine smallwood(s) Elan [id number] Social History Type Description Quantity Date Captured [...]
[2025-07-10 09:06] VITALS: BMI 23.7
--- OUTSIDE RECORDS SUMMARY | 2025-07-23 00:11 | XMS_ITS | Encounter Summary ---
Author Organization [facility] Address [facility] [place] [address] Care Team Providers Care Binder And Box Builder Name Role Phone Channing Barlow MD Primary Care Provider U Amy Camara MD Primary Care Provider [phone] None, Provider Primary Care Provider Unavaila Amy Gilliam MD Primary Care Provider [phone] Bari Ballard MD Primary Care Provider [phone] Encounter Details Date Type Department Care Team (Late st Contact Info) Description 12/02/2015 Abstract [facility] CONVERSION [address] [place] [address] , Generic Conversion, Social History Tobacco Use Types Packs/Day Years Used Date Smoking Tobacco: Never Assessed Sex and Gender Information Value Date Recorded Sex Assigned at Male 12/04/2024 9:39 AM 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 Inter[facility] [place] [address] [id number] Erika Short MD Three [facility] [address] [place] [address] 08/27/2025 2:20 PM CDT - 08/27/2025 2:[address] [facility] Inter[facility] [place] [address] [id number] Erika Short MD Three [facility] [address] [place] [address] INJECTION EPIDURAL TRANSFORAMINAL l45 and l5s1 Scheduled Procedures Name Priority Associated Diagnoses Date/Ti me INJECTION EPIDURAL TRANSFORAMINAL Lumbar radiculopathy 08/27/2025 2:20 PM CDT documented as of this encounter Visit Diagnoses Not on filedocumented in this encounter Care Teams Binder And Box Builder Relationship Specialty Start Date End Date Channing Barlow MD PCP - General INTERNAL MEDICINE 05/25/17 12/30/22 [place] [address] [place] [address] PCP - General FAMILY PRACTICE 12/31/22 06/06/24 Ben Rowland MD PCP - General UNKNOWN PHYSICIAN SPECIALTY 06/20/24 08/21/24 [place] [address] [place] [address] PCP - General FAMILY PRACTICE 08/22/24 09/03/24 Bari Ballard MD [address] [place] [address] PCP - General FAMILY PRACTICE 09/04/24 documented as of this encounter
--- OUTSIDE RECORDS SUMMARY | 2025-07-23 00:11 | XMS_ITS | Encounter Summary ---
Author Organization [facility] Address [facility] [place] [address] Care Team Providers Care Tobacco Feeder Catcher Name Role Phone Channing Barlow MD Primary Care Provider U Amy Camara MD Primary Care Provider [phone] None, Provider Primary Care Provider Unavaila Amy Gilliam MD Primary Care Provider [phone] Bari Ballard MD Primary Care Provider [phone] Encounter Details Date Type Department Care Team (Late st Contact Info) Description 05/18/2017 Abstract [facility] CONVERSION [address] [place] [address] , Generic Conversion, Social History Tobacco Use Types Packs/Day Years Used Date Smoking Tobacco: Never Assessed Sex and Gender Information Value Date Recorded Sex Assigned at Male 12/04/2024 9:39 AM 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 Legal Sex Male 7:23 PM CDT Gender Identity Not on file Sexual Orientation Not on file documented as of this encounter Plan of Treatment Upcoming Encounters Date Type Department Care Team (Latest Contact Info) Description 08/27/2025 2:20 PM CDT Hospital Encounter [facility] Interventional [place] [address] [id number] Erika Short MD Three [facility] [address] [place] [address] 08/27/2025 2:20 PM CDT - 08/27/2025 2:40 PM CDT Surgery [facility] Interventional Pain [place] [address] [id number] Erika Short MD Three [facility] [address] [place] [address] INJECTION EPIDURAL TRANSFORAMINAL l45 and l5s1 Scheduled Procedures Name Priority Associated Diagnoses Date/Ti me INJECTION EPIDURAL TRANSFORAMINAL Lumbar radiculopathy 08/27/2025 2:20 PM CDT documented as of this encounter Visit Diagnoses Not on filedocumented in this encounter Care Teams Tobacco Feeder Catcher Relationship Specialty Start Date End Date Channing Barlow MD PCP - General INTERNAL MEDICINE 05/25/17 12/30/22 [place] [address] [place] [address] PCP - General FAMILY PRACTICE 12/31/22 06/06/24 Ben Rowland MD PCP - General UNKNOWN PHYSICIAN SPECIALTY 06/20/24 08/21/24 [place] [address] [place] [address] PCP - General FAMILY PRACTICE 08/22/24 09/03/24 Bari Ballard MD [address] [place] [address] PCP - General FAMILY PRACTICE 09/04/24 documented as of this encounter
--- OUTSIDE RECORDS SUMMARY | 2025-07-23 00:11 | XMS_ITS | Encounter Summary ---
Author Organization [facility] Address [facility] [place] [address] Care Team Providers Care Industrial Automation Specialist Name Role Phone Amy Cortes MD Primary Care Provider [phone] None, Provider MD Primary Care Provider Unavailvirtua [facility] Aym Cortes MD Primary Care Provider [phone] Bari Ballard MD Primary Care Provider Encounter Details Date Type Department Care Team (Late st Contact Info) Description 08/16/2023 [employer] Message Enc [facility] Medical [facility] Family & Internal Medicine [address] [address] [facility] Provider results Social History Tobacco [...] Sex Assigned at Male 12/04/2024 9:39 AM EXCEL 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 Legal Sex Male 7:23 PM CDT Gender Identity Not on file Sexual Orientation Not on file documented as of this encounter Plan of Treatment Upcoming Encounters Date Type Department Care Team (Latest Contact Info) Description 08/27/2025 2:20 PM CDT Hospital Encounter [facility] Interventional [place] [address] [id number] Erika Short MD Three [facility] [address] [place] [address] 08/27/2025 2:20 PM CDT - 08/27/2025 2:40 PM CDT Surgery [facility] Interventional Pain [place] [address] [id number] Erika Short MD Three [facility] [address] [place] [address] INJECTION EPIDURAL TRANSFORAMINAL l45 and l5s1 Scheduled Procedures Name Priority Associated Diagnoses Date/Ti me INJECTION EPIDURAL TRANSFORAMINAL Lumbar radiculopathy 08/27/2025 2:20 PM CDT documented as of this encounter Visit Diagnoses Not on filedocumented in this encounter Additional Health Concerns Assessment Noted Time PHQ-9 Depression Total Score: 0 05/26/20 9:59 AM CDT documented as of this encounter Care Teams Industrial Automation Specialist Relationship Specialty [place] [address] [place] [address] PCP - General FAMILY PRACTICE 12/31/22 06/06/24 None, MD Ben PCP - General UNKNOWN PHYSICIAN SPECIALTY 06/20/24 08/21/24 [place] [address] [place] [address] PCP - General FAMILY PRACTICE 08/22/24 09/03/24 Bari Ballard MD [address] [place] [address] PCP - General FAMILY PRACTICE 09/04/24 documented as of this encounter
--- OUTSIDE RECORDS SUMMARY | 2025-07-23 00:11 | XMS_ITS | Encounter Summary ---
Author Organization [facility] Address [facility] [place] [address] Care Team Providers Care Upholsterer Helper Name Role Phone Bari Ballard MD Primary Care Provider [phone] Reason for Referral * Surgical (Routine) - New Request Specialty Diagnoses / Procedures Referred By Shari omer Referred To Contact Diagnoses Lumbar facet arthropathy Procedures Case request operating room: RADIOFREQUENCY LUMBAR-L2, 3, 4 [facility] [address] [facility] [address] Phone: tel: [phone] fax: Referral ID Status Reason Start Date Expiration Date V isits Requested Visits Authorized [id number] New Request 10/24/2024 10/24/2025 1 1 NESS TRANSFORMATION ANALYST Encounter Details Date Type Department Care Team (Late st Contact Info) Description 10/24/2024 Prep for Procedure [facility] [address] [facility] [place] [place] [id number] [facility]ji Valencia CNP 3 [facility] [phone] (Work) Social History Tobacco Use Types Packs/Day [...] Sex Assigned at Male 12/04/2024 9:39 AM BUSINESS TRANSFORMATION ANALYST Legal Sex Male 7:23 PM CDT Gender Identity Not on file Sexual Orientation Not on file documented as of this encounter Plan of Treatment Upcoming Encounters Date Type Department Care Team (Latest Contact Info) Description 08/27/2025 2:20 PM CDT Hospital Encounter [facility] [place] [address] [id number] Erika Short MD [address] [address] 08/27/2025 2:20 PM CDT - 08/27/2025 2:40 PM CDT Surgery [facility] [place] [address] [id number] Erika Short MD [address] [address] INJECTION EPIDURAL TRANSFORAMINAL l45 and l5s1 Scheduled [...] documented as of this encounter Care Teams Upholsterer Helper Relationship Specialty Start Date End Date Bari Ballard MD [address] [place] [address] PCP - General FAMILY PRACTICE 09/04/24 documented as of this encounter
--- OUTSIDE RECORDS SUMMARY | 2025-07-23 00:11 | XMS_ITS | Clinical Summary ---
Author Organization [facility] Johnie walker [place] Address [address] [place] [address] Care Team Providers Care Survey Crew Chief Name Role Phone Unavailable Primary Care Provider [...] Data STL ABSTRACTION Provider, Abstract 06/17/2025 Telephone [facility] Oncology and Hematology - [address] [place] [address] El Khan MD lab results 06/17/2025 Orders Only [facility] Oncology and Hematology - [place] [address] [facility] [address] El Khan MD 06/14/2025 Orders Only [facility] Oncology and Hematology - [address] [place] [address] El Khan MD 06/12/2025 Orders Only [facility] Oncology and Hematology - [address] [place] [address] El Khan MD 06/11/2025 3:00 PM CDT Office Visit [facility] Oncology and Hematology - [address] [place] [address] El Khan MD Chronic anemia [...] 07/24/2025 4:00 PM CDT Telephone Check Up [facility] Oncology and Hematology - [address] [place] [address] Gracie Torrez MD [address] [place] [address] Health Maintenance Due Date Last Done Comments FIT-DNA Q 3 years 1995 FIT/FOBT Q 1 year 1995 Flex Sig/CT Colonography Q 5 years 1995 DTAP/TDAP/TD VACCINES (1 - Tdap) 11/19/2017 11/18/19 18 ZOSTER VACCINE (2 of 2) 09/02/2023 07/08/2023 INFLUENZA VACCINE (#1) 2025 , 08/19/2022, 08/13/2021, Additional history exists COVID-19 Vaccine (5 - 2024-2 6 season) 2025 09/02/2022, 10/22/2021, 02/17/2021, Additional history exists RSV VACCINE (60+ or [...] Months Insurance MEDICARE PART A AND B [facility]
--- OUTSIDE RECORDS SUMMARY | 2025-07-23 00:11 | XMS_ITS | Encounter Summary ---
Author Organization [facility] Address [facility] [place] [address] Care Team Providers Care Bookbinder Chief Name Role Phone Amy Cortes MD Primary Care Provider [phone] None, Provider MD Primary Care Provider [facility] Amy Cortes MD Primary Care Provider [phone] Bari Ballard MD Primary Care Provider [phone] Encounter Details Date Type Department Care Team (Late st Contact Info) Description 10/18/2023 [employer]inus Message Enc [facility] Medical Group Family & Internal Medicine [address] [address] Mychart, [facility] Provider Parking placard Social History Tobacco [...] Sex Assigned at Male 12/04/2024 9:39 AM ABSORPTION PLANT OPERATOR Legal Sex Male 7:23 PM CDT Gender Identity Not on file Sexual Orientation Not on file documented as of this encounter Progress Notes * Nenita Melendrez RN - 10/21/2023 2:35 PM CST Noted. RPTION PLANT OPERATOR * Dawnivet Salvador - 10/21/2023 1:40 PM CST Pt came by, signed the forms and took with him as he will take to the [place]. RPTION PLANT OPERATOR documented in this encounter Plan of Treatment Upcoming Encounters Date Type Department Care Team (Latest Contact Info) Description 08/27/2025 2:20 PM CDT Hospital Encounter [facility] [place] [address] [id number] Erika Short MD Three [facility] [address] [place] [address] 08/27/2025 2:20 PM CDT - 08/27/2025 2:[address] [facility] [place]ventional [place] [address] [id number] Erika Short MD Three [facility] [address] [place] [address] INJECTION EPIDURAL TRANSFORAMINAL l45 and l5s1 Scheduled Procedures Name Priority Associated Diagnoses Date/Ti me INJECTION EPIDURAL TRANSFORAMINAL Lumbar radiculopathy 08/27/2025 2:20 PM CDT documented as of this encounter Visit Diagnoses Not on filedocumented in this encounter Additional Health Concerns Assessment Noted Time PHQ-9 Depression Total Score: 0 05/26/20 22 9:59 AM CDT documented as of this encounter Care Teams Bookbinder Chief Relationship Specialty [place] [address] [place] [phone] PCP - General FAMILY PRACTICE 12/31/22 06/06/24 None, Provider, PCP - General UNKNOWN PHYSICIAN SPECIALTY 06/20/24 08/21/24 [place] [address] [address] PCP - General FAMILY PRACTICE 08/22/24 09/03/24 Bari Ballard MD [address] [place] [address] PCP - General FAMILY PRACTICE 09/04/24 documented as of this encounter
--- OUTSIDE RECORDS SUMMARY | 2025-07-23 00:11 | XMS_ITS | Clinical Summary ---
Author Organization [facility] Address [facility] [place] [address] Care Team Providers Care Pallet Stone Inserter Name Role Phone Bari Ballard MD Primary Care Provider [phone] Allergies No known active allergies Medications atorvastatin [...] (08/04/2023): Added automatically from request for surgery [id number] Erectile dysfunction, unspecified erectile dysfu nction type [...] MCG/ 0.5 ML DOSE 02/17/2021,01/20/2021 MODERNA COVID-19 (LEADERSHIP DEVELOPMENT CONSULTANT TIERA RAMILA), MRNA, LNP-S, PF, 50 MCG/ [...] Sex Assigned at Male 12/04/2024 9:39 AM ACCOUNTING TUTOR Legal Sex Male 7:23 PM CDT Gender [...] Description 08/27/2025 2:20 PM CDT Hospital Encounter [facility] Interventional [place] [address] [id number] Erika Short MD Three [facility] [address] [facility] [place] [address] 08/27/2025 2:20 PM CDT - 08/27/2025 2:40 PM CDT Surgery [facility] Interventional [place] [address] [id number] Erika Short MD Three [facility] [address] [place] [address] INJECTION EPIDURAL TRANSFORAMINAL l45 and l5s1 Scheduled Procedures Name Priority Associated Diagnoses Date/Ti me INJECTION EPIDURAL TRANSFORAMINAL Lumbar radiculopathy 08/27/2025 2:20 PM CDT Health Maintenance Due Date Last Done Comments Hepatitis C 1968 Zoster Vaccines (1 of 2) 2000 Annual Medicare Wellness Visit 2015 DTaP, Tdap and Td Vaccines (1 - Tdap) 11/19/2017 11/18/2017, 11/18/2017, 11/18/2017 PHQ-2 (Physician [place]) 11/14/2024 12/07/2023 COVID-19 Vaccine ( season) 2025 09/02/2022, 10/22/2021, 02/17/2021, Additional history exists RSV Immunization or 60+ Years (1 - [...] Goal Care Plan Autogenerated Problem No Chanda Yu V Procedures Procedure Name Priority Date/Time Associated Diagnosis Comments COLONOSCOPY GENERIC (SCAN ORDER) Routine 09/20/2018 from Last 3 Months or Most Recently Relevant to Health Maintenance Results * COLONOSCOPY (09/20/2018) us Documents Scanned SCANNING Final Result from Last 3 Months or Most Recently Relevant to Health Maintenance Additional Health Concerns Active Problems Noted Date Diagnosed Date Autogenerated Problem 07/09/2025 Insurance MEDICARE [facility] MEDICARE Care Teams Pallet Stone Inserter Relationship Specialty Start Date End Date Bari Ballard MD [address] [place] [address] PCP - General FAMILY PRACTICE 09/04/24
--- OUTSIDE RECORDS SUMMARY | 2025-07-23 00:11 | XMS_ITS | Encounter Summary ---
Author Organization [facility] Address [facility] [place] [address] Care Team Providers Care Dolly Pusher Name Role Phone Amy Cortes MD Primary Care Provider [phone] None, Provider MD Primary Care Provider Unavaila [facility] Amy Cortes MD Primary Care Provider [phone] Bari Ballard MD Primary Care Provider [phone] Encounter Details Date Type Department Care Team (Late st Contact Info) Description 08/30/2023 MyChart Message Enc [facility] Medical Group Family & Internal Medicine [address] [address] Mycdarylt, [facility] Provider pneumonia Social History [...] Sex Assigned at Male 12/04/2024 9:39 AM DIRECTOR MBA Legal Sex Male 7:23 PM CDT Gender Identity Not on file Sexual Orientation Not on file documented as of this encounter Plan of Treatment Upcoming Encounters Date Type Department Care Team (Latest Contact Info) Description 08/27/2025 2:20 PM CDT Hospital Encounter [facility] Interventional [place] [address] [id number] Erika Short MD Three [facility] [address] [place] [address] 08/27/2025 2:20 PM CDT - 08/27/2025 2:40 PM CDT Surgery [facility] Interventional Pain [place] [address] [id number] Erika Short MD Three [facility] [address] [place] [address] INJECTION EPIDURAL TRANSFORAMINAL l45 and l5s1 Scheduled Procedures Name Priority Associated Diagnoses Date/Ti me INJECTION EPIDURAL TRANSFORAMINAL Lumbar radiculopathy 08/27/2025 2:20 PM CDT documented as of this encounter Visit Diagnoses Not on filedocumented in this encounter Additional Health Concerns Assessment Noted Time PHQ-9 Depression Total Score: 0 05/26/20 9:59 AM CDT documented as of this encounter Care Teams Dolly Pusher Relationship Specialty [place] [address] [place] [address] PCP - General FAMILY PRACTICE 12/31/22 06/06/24 None, MD Ben PCP - General UNKNOWN PHYSICIAN SPECIALTY 06/20/24 08/21/24 [place] [address] [place] [address] PCP - General FAMILY PRACTICE 08/22/24 09/03/24 Bari Ballard MD [address] [place] [address] PCP - General FAMILY PRACTICE 09/04/24 documented as of this encounter
[2025-07-23 08:18] VITALS: BP 107/61; PULSE 63; RESP 18; TEMP 36.6; O2SAT 100
[2025-07-23] MEDS: LACTATED RINGERS 1,000 ML 150 ML IV CONT (08:26)
[2025-07-23] MEDS: SIMETHICONE ORAL SUSPENSION 20 MG/0.3 ML 30 ML BOTTLE 1.8 ML PO (08:28)
--- NOTE | 2025-07-23 08:58 | WPDANESEPPF ---
Anes - Initial Pre Proc Eval Procedure: Operation Date: 07/23/25 09:30 Proposed Procedures p Esophagogastroduodenoscopy - Mitesh Chua MD Date/Time: 07/23/25 08:58 Surgeon: Mitesh Chua MD Pre Op Diagnosis: Epigastric pain Patient Data Age: 74 Gender: M Height: 1.83 m Weight: 77.5 kg Last Vital Signs Temp 36.6 C 07/23/25 08:18 Pulse 63 07/23/25 08:18 Resp 18 07/23/25 08:18 BP 107/61 07/23/25 08:18 Pulse Ox 100 07/23/25 08:18 O2 Del Method Room Air 07/23/25 08:18 Allergies Allergy/AdvReac Type Severity Reaction Status Date / Time No Known Allergies Allergy Mild Verified 07/23/25 08:16 Home Medications ?Medication ?Instructions ?Recorded ?Confirmed ?Type cholecalciferol (vitamin D3) 25 25 mcg PO DAILY 03/01/24 07/23/25 History mcg (1,000 unit) capsule ferrous sulfate 325 mg (65 mg 325 mg PO DAILY 03/01/24 07/23/25 History iron) tablet vitamin B complex 1 tablet PO DAILY 03/01/24 07/23/25 History acetaminophen 500 mg capsule 1,000 mg (2 x 500 mg) PO Q6H PRN 06/06/24 07/23/25 Rx pain #20 caps tadalafil 20 mg tablet 20 mg PO DAILY PRN sexual activity 03/04/25 07/10/25 Rx #30 tabs buspirone 15 mg tablet 15 mg PO BID #60 tabs 05/14/25 07/23/25 Rx atorvastatin 20 mg tablet 20 mg PO DAILY #90 tabs 07/08/25 07/23/25 Rx omeprazole 20 mg capsule,delayed 20 mg PO DAILY #100 caps 07/08/25 07/23/25 Rx release Patient hx anesthesia problems: none Family hx anesthesia problems: none Results Review: All pre-operative results and documents have been reviewed as part of the pre-operative evaluation. [facility] Past Medical History Medical History Generalized anxiety disorder Thrombocytopenia Anemia Pure hypercholesterolemia, unspecified Chronic back pain Osteoarthritis Surgical History Surgical History History of total knee arthroplasty Right; orthopedic surgeon Dr Mckay History of shoulder surgery X4 History of tonsillectomy Hx of bilateral cataract extraction 09/2023 History of right inguinal hernia repair 2004 History of appendectomy 1969 Social History Social History Smoking status: Never smoker Alcohol intake: current Substance use: never Substance use type: does not use Do You Feel Safe in your Home?: Yes Lack of Transportation: No Lack of Food: Never True Current Housing: I Have Housing Concerned About Future Housing: No Difficulty Paying Gas/Electric Bills: No Difficulty Paying for Meds: No Currently Unemployed: No Education: Associate Degree Difficulty w/ Childcare or Family Care: No Living arrangements: alone Occupation/Education: retired Gender identity (if verbalized by the patient): Male Sexual Orientation (if Verbalized by the Patient): Straight or Heterosexual Spiritual care concerns: No Anes - Eval Final PreProcedure Day of Procedure 07/23/25 08:58 Patient weight: normal Heart: regular rate and rhythm Lungs: clear to auscultation Airway: Mallampati scale class II Neurological: alert and oriented Last oral intake: >/= 8 hours ASA classification: II Emergent: no Anesthetic plan: proceed Anesthesia type and monitoring: general GIVS and standard monitoring Results Review: All pre-operative results and documents have been reviewed as part of the pre-operative evaluation. Informed Consent: The patient's anesthetic plan and its attendant risks and benefits were discussed with the patient/family/POA. Questions were solicited and answers provided to the satisfaction of the patient/family/POA.
--- NOTE | 2025-07-23 09:39 | PM.IMHP ---
H&P: HPI History of Present Illness Date/Time: 07/23/25 09:39 Chief Complaint: Epigastric pain-nausea Narrative: this patient has been having intermittent episodes of epigastric pain associated with nausea. There is no heartburn or dysphagia. He takes occasional Pepto-Bismol or famotidine for pain relief. Has chronic back pain and takes occasional NSAIDs but not on a daily basis. He is now referred for EGD. Review of Systems Review of Systems: All systems reviewed & are unremarkable except as noted in HPI and below PMFSH Past Medical History Medical History Generalized anxiety disorder Thrombocytopenia Anemia Pure hypercholesterolemia, unspecified Chronic back pain Osteoarthritis Surgical History Surgical History History of total knee arthroplasty Right; orthopedic surgeon Dr Mckay History of shoulder surgery X4 History of tonsillectomy Hx of bilateral cataract extraction 09/2023 History of right inguinal hernia repair 2004 History of appendectomy 1969 Social History Social History Smoking status: Never smoker Alcohol intake: current Substance use: never Substance use type: does not use Do You Feel Safe in your Home?: Yes Lack of Transportation: No Lack of Food: Never True Current Housing: I Have Housing Concerned About Future Housing: No Difficulty Paying Gas/Electric Bills: No Difficulty Paying for Meds: No Currently Unemployed: No Education: Associate Degree Difficulty w/ Childcare or Family Care: No Living arrangements: alone Occupation/Education: retired Gender identity (if verbalized by the patient): Male Sexual Orientation (if Verbalized by the Patient): Straight or Heterosexual Spiritual care concerns: No Meds Home Medications and Allergies Home Medications ?Medication ?Instructions ?Recorded ?Confirmed ?Type cholecalciferol (vitamin D3) 25 25 mcg PO DAILY 03/01/24 07/23/25 History mcg (1,000 unit) capsule ferrous sulfate 325 mg (65 mg 325 mg PO DAILY 03/01/24 07/23/25 History iron) tablet vitamin B complex 1 tablet PO DAILY 03/01/24 07/23/25 History acetaminophen 500 mg capsule 1,000 mg (2 x 500 mg) PO Q6H PRN 06/06/24 07/23/25 Rx pain #20 caps tadalafil 20 mg tablet 20 mg PO DAILY PRN sexual activity 03/04/25 07/10/25 Rx #30 tabs buspirone 15 mg tablet 15 mg PO BID #60 tabs 05/14/25 07/23/25 Rx atorvastatin 20 mg tablet 20 mg PO DAILY #90 tabs 07/08/25 07/23/25 Rx omeprazole 20 mg capsule,delayed 20 mg PO DAILY #100 caps 07/08/25 07/23/25 Rx release Allergies Allergy/AdvReac Type Severity Reaction Status Date / Time No Known Allergies Allergy Mild Verified 07/23/25 08:16 Vital Signs Vital Signs - 24 hr 07/23/25 08:18 Temperature 97.8 F Pulse Rate 63 Respiratory Rate 18 Blood Pressure 107/61 Pulse Oximetry 100 Oxygen Delivery Room Air Exam Const: General: cooperative and healthy appearing Resp: Effort & Inspection: normal respiratory effort and able to speak in complete sentences Auscultation: clear to auscultation bilaterally Cardio: Rate: regular rate Rhythm: regular rhythm GI: Inspection: normal to inspection GI Palp: No No hepatosplenomegaly present Auscultation: normal bowel sounds Rectal Exam: deferred Skin: General skin exam: normal color Psych: Appearance: grossly normal Mental Status: mental status grossly normal Assessment and Plan Assessment and plan (1) Epigastric pain: Code(s): R10.13 - Epigastric pain Status: Acute Assessment and Plan: The patient is deemed a good candidate for the procedure. Consent signed. Will proceed.
--- NOTE | 2025-07-23 10:04 | S_PTH ---
PATIENT: Zechariah Liriano LOC: [facility] U#:[id number] AGE/SX: 74/M ROOM: RE07/23/[address]: Mitesh Chua MD : 1950 BED: DIS: 07/23/2025 SPEC #: [id number] RECD: 07/23/25 10:38 STATUS: ELSY REQ #: [id number] DUSTY: 07/23/25 10:[address]: Mitesh Chua DEPT: [facility] Surgical RECD BY: Jacob Arcos ENTERED: 07/23/25 10:41 SP TYPE: Surgical OTHR DR: Bari Ballard MD Tissues: A - Esophageal Biopsy B - Gastric Biopsy C - Gastric Biopsy Procedures: Grocotts Methenamine Stain Hematoxylin and Eosin Stain Gross and Microscopic Level 4
[2025-07-23 10:05] VITALS: BP 98/63; PULSE 58; RESP 17; O2SAT 100
[2025-07-23 10:15] VITALS: BP 104/68; PULSE 57; RESP 21; O2SAT 100
[2025-07-23 10:25] VITALS: BP 113/67; PULSE 67; RESP 20; O2SAT 100
== END 2025-07-23 10:36 | disposition home or self-care (01) ==
PROVIDERS: PCP Family Medicine; Referring Provider Family Medicine; Visit Provider Internal Medicine Gastroenterology
PROC: 0DJ08ZZ Inspection of Upper Intestinal Tract, Via Natural or Artificial Opening Endoscopic (ICD-10-PCS; CPT 43239; principal; 2025-07-23 09:30)
DX: K21.00 Gastro-esophageal reflux disease with esophagitis, without bleeding (principal); K29.20 Alcoholic gastritis without bleeding; D64.9 Anemia, unspecified; F41.9 Anxiety disorder, unspecified; D69.6 Thrombocytopenia, unspecified; E78.00 Pure hypercholesterolemia, unspecified; G89.29 Other chronic pain; M54.9 Dorsalgia, unspecified; M19.90 Unspecified osteoarthritis, unspecified site; Z98.890 Other specified postprocedural states
CPT/HCPCS: 43239; 88305; 88312; J2003; J2704; J7120

== ENCOUNTER 2025-07-25 13:21 | Outpatient (CLI) | payer MEDICARE, SELFPAY ==
--- OUTSIDE RECORDS SUMMARY | 2025-07-24 16:00 | XMS_ITS | Encounter Summary ---
Author Organization [facility] [employer] [facility] Address [address] [place] [address] Care Team Providers Care Senior Designer Name Role Phone Unavailable Primary Care Provider Unavailabl e Reason for Referral * Radiology Services (Routine) - Closed Specialty Diagnoses / Procedures Referred By Aftabac t Referred To Contact Diagnoses Leukopenia, unspecified type Chronic anemia Procedures CA OFFICE/OUTPATIENT ESTABLISHED MOD MDM 30 MIN CA OFFICE/OUTPATIENT NEW MODERATE MDM 45 MINUTES Gracie Torrez MD [address] [place] [address] Phone: tel: fax: Referral ID Status Reason Start Date Expiration Date Visits Re quested Visits Authorized [id number] Closed 07/24/2025 07/24/2026 1 1 Scheduling Instructions Patient need bone marrow biopsy and aspiration. He needs flow cytometry, cytogenetics. He might need FISH or NGS testing based on the bone marrow biopsy results and pathology discretion Encounter Details Date Type Department Care Team (Late st Contact Info) Description 07/24/2025 4:00 PM CDT Telephone Check Up [facility] Oncology and Hematology - [address] [place] [address] Gracie Torrez MD [address] [place] [address] Leukopenia, unspecified type (Primary Dx); Chronic anemia Social History Tobacco Use Types Packs/Day Years Used Date Smoking Tobacco: Never Smokeless Tobacco: Never Alcohol Use Standard Drinks/Week Comments Yes 0 (1 standard drink = 0.6 oz pur e alcohol) occasional Sex and Gender Information Value Date Recorded Sex Assigned at Not on file Legal Sex Male 1:24 PM CDT Gender Identity Not on file Sexual Orientation Not on file documented as of this encounter Progress Notes * Gracie Torrez MD - 07/24/2025 6:01 PM CDT Hematology-oncology consult Note Requesting Physician Primary Care Physician No primary care provider on file. Problem list There is no problem list on file for this patient. Previous TREATMENT ? Measurable Disease ? Reason for Visit Zechariah Liriano is a 74 y.o. male who was referred for consultation for leukopenia and anemia. History of present illness This is a pleasant 74-year-old male who has been in good health except history of hyperlipidemia, anxiety and depression along with GERD referred to me for leukopenia and anemia. 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 He denies any bleeding and bruising. He denies any melena hematochezia. He denies any previous stomach surgeries. He denies b eing a vegetarian. He has been complaining of occasional tiredness and fatigue. He has no new lumpsbumps and lymphadenopathy. His last colonoscopy was more than 3 years ago. Has been dealing with chronic back pain. He has been taking iron and vitamin B12 on a daily basis for the last 1 year duration. His labs from February 2025 showed mild leukopenia with WBC of 3.2 and hemoglobin of 13. His MCV was slightly elevated at 106. Dr. Khan ordered further blood work and abdominal ultrasound. Today's is a telephone visit on 07/24/2025 to go over the results of the blood work and the ultrasound. Patient's girlfriend was also on the call. Patient reports that he had some significant weight loss in past 6 months. He has attributed that to the stresses in his life. Past Medical History No past medical history on file. Hyperlipidemia Anxiety/depression GERD Surgical History Past Surgical History: Procedure Laterality Date HX HERNIA REPAIR 2004 HX KNEE SURGERY Right 2016 HX ROTATOR CUFF REPAIR 2013 Medications Current Outpatient Medications Medication Sig Dispense Refill acetaminophen (TYLENOL) 500 mg tablet TAKE 2 CAPSULES BY MOUTH EVERY 6 HOURS NEEDED FOR PAIN atorvastatin (LIPITOR) 20 mg tablet Take 20 mg by mouth daily. busPIRone (BUSPAR) 15 mg Tablet Take 1 Tablet by mouth 2 times daily. omeprazole (PriLOSEC) 20 mg Capsule, Delayed Release(E.C.) Take 1 Capsule by mouth daily. sertraline (ZOLOFT) 50 mg tablet Take 1 Tablet by mouth daily. tadalafiL (CIALIS) 20 mg tablet Take 20 mg by mouth 1 time daily as needed. No current facility-administered medications for this visit. Allergies No Known Allergies Immunizations: Immunization History Administered Date(s) Administered (Pfizer Bivalent)(12 Yr Up) COVID-19 Vaccine - Emergency Use Authorization, MRNA, Lnp-S(Pf) 30 Mcg/0.3 Ml Susp 09/02/2022 (SPIKEVAX) (12 YRS UP PRIMARY SERIES) COVID-19 VACCINE - MRNA-1273(PF) 100 MCG/0.5 ML IM SUSP 01/20/2021, 02/17/2021, 10/22/2021 Family History Family History Problem Relation Name Age of Onset No Known Problems Father No Known Problems Mother No Known Problems Sister No Known Problems Child Social History Social History Tobacco Use Smoking status: Never Smokeless tobacco: Never Substance Use Topics Alcohol use: Yes Comment: occasional Review of Systems Constitutional: Patient did not mention fever; no night sweats; no anorexia; no weight loss; complain of mild tiredness and fatigue NEENT: Patient did not mention headache; no change in vision; no change in hearing; no sore throat;no dysphagia Respiratory: Patient did not mention shortness of breath; no pleuritic chest pain; no cough; no hemoptysis Cardiac: Patient did not mention cardiac-like chest pain; no palpitations; no orthopnea; no PND; noDOE GI: Patient did not mention abdominal pain; no nausea; no vomiting; no diarrhea; no hematochezia; no melena : Patient did not mention dysuria; no frequency; no hesitancy; no hematuria SEA AIR LAND 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 labs Labs from February 2025 showed WBC 3.2 hemoglobin 13 MCV 806.2 platelet 176,000 neutrophils 55% lymphocyte 26% 06/11/2025- WBC 2.6, hemoglobin 11.7, hematocrit 33.8, MCV 106, platelets 162 K. Creatinine 0.68 ferritin 654, iron saturation 79%, TIBC 196, B12 535, folate 11.2, soluble transferrin receptor 9.7 andlow Assessment / Plan: ? Macrocytic anemia and mild leukopenia. Patient with leukopenia present since 12/18/2024 when WBC was 3.2. His anemia dates back to 08/01/2023when hemoglobin was 12. More recent CBC on 06/11/2025 shows further worsening of white blood cell count to 2.6 and hemoglobin decreased to 11.7 with macrocytosis and MCV being 106. B12 and folic acid levels are normal. MMA is normal. IVORY negative. Iron parameters are high with ferritin 654, iron saturation 79% and soluble transferrin receptor at 9.7 and low Abdominal ultrasound shows normal liver and spleen. Therefore at this time we do not have an explanation for his leukopenia and macrocytic anemia. Patient definitely needs to stop oral iron as his saturations and ferritin is high with soluble transferrin receptor being low shows that patient is iron overloaded. I asked him to stop the oral iron. He can continue his B12 as B12 levels were normal at 535. However the macrocytosis is still not explained. Reticulocytosis can also cause macrocytosis and perhaps reticulocyte index can be checked in addition to haptoglobin. Serum protein electrophoresis can also be checked. However with concomitant leukopenia he needs a bone marrow biopsy. I have entered the order for interventional radiology guided bone marrow biopsy. Patient and his girlfriend are in understanding and agree for the bone marrow biopsy. He will return to clinic to see Dr. Khan after the bone marrow biopsy. Hyperlipidemia. Patient is on Lipitor. Anxiety/depression. He is on BuSpar and Zoloft. GERD. He is on Prilosec. Thank you very much for allowing me to participate in Zechariah Liriano's evaluation and management. Please feel free to contact if I can be of any further assistance in your patient???s care requiring hematology or oncology evaluation. Sincerely, ? ? El Khan M.D. cell TOBACCO COUNSELING He is not a tobacco/nicotine user. Gracie Torrez MD ,07/24/2025 6:02 PM ? Total time spent 60 minutes, two third of the total time spent counseling patient [id number]. CC:? documented in this encounter Miscellaneous Notes * Addendum Note - Gracie Torrez MD - 07/25/2025 1:18 PM CDTAddended by: GRACIE TORREZ on: 07/25/2025 01:18 PM Modules accepted: Orders documented in this encounter Plan of Treatment Upcoming Encounters Date Type Department Care Team (Late st Contact Info) Description 08/14/2025 10:00 AM CDT Appointment [facility] Interventional Radiology [address] [facility] [address] [place] [address] Gracie Torrez MD [address] [address] 7, [address] [place], [facility] [place] Scheduled Orders Name Type Priority Associated Diagnoses Orde r Schedule RETICULOCYTES Lab Routine Chronic anemia Expected: 07/25/2025, Expires: 07/25/2026 PROTEIN ELECTROPHORESIS W/REFLEX,SERUM Lab Routine Chronic anemia Expected: 07/25/2025, Expires: 07/25/2026 HAPTOGLOBIN Lab Routine Chronic anemia Expected: 07/25/2025, Expires: 07/25/2026 Scheduled Referrals Name Type Priority Associated Diagnoses Order Schedule AMB REFERRAL TO INTERVENTIONAL RADIOLOGY Outpatient Referral Routine Leukopenia, unspecified type Chronic anemia Ordered: 07/24/2025 documented as of this encounter Visit Diagnoses Diagnosis Leukopenia, unspecified type- Primary Chronic anemia Anemia, unspecified documented in this encounter
[2025-07-25 13:39] LABS: Immature Reticulocyte Fraction 4.3 % (3.0-15.9); Reticulocyte Hemoglobin Conten 41.0 pg (28.2-36.6); Reticulocytes Absolute 0.04 10^6/uL (0.02-0.10)
--- OUTSIDE RECORDS SUMMARY | 2025-07-25 15:06 | XMS_ITS | Clinical Summary ---
Author Organization [facility] Johnie walker [place] Address [address] [place] [address] Care Team Providers Care Watch Case Polisher Name Role Phone Unavailable Primary Care Provider [...] daily as needed. 12/07/2023 Active Active Problems Problem Noted Date Diagnosed Date Leukopenia 07/24/2025 Chronic anemia 07/24/2025 Encounters Date Type Department Care Team Description 07/24/2025 4:00 PM CDT Telephone Check Up [facility] Oncology and Hematology - [address] [place] [address] Gracie Torrez MD Leukopenia, unspecified type (Primary Dx); Chronic anemia 07/23/2025 Orders Only [facility] Oncology and Hematology - [address] [place] [address] El Khan MD 06/19/2025 External Device Data STL ABSTRACTION Provider, Abstract 06/18/2025 External Device Data STL ABSTRACTION Provider, Abstract 06/18/2025 External Device Data STL ABSTRACTION Provider, Abstract 06/17/2025 Telephone [facility] Oncology and Hematology - [address] El Khan MD lab results 06/17/2025 Orders Only [facility] Oncology and Hematology - [address] [place] [id number] El Khan MD 06/14/2025 Orders Only [facility] Oncology and Hematology - [address] [place] [id number] El Khan MD 06/12/2025 Orders Only [facility] Oncology and Hematology - [address] [place] [address] El Khan MD 06/11/2025 3:00 PM CDT Office Visit [facility] Oncology and Hematology - [address] [place] [address] El Khan MD Chronic anemia (Primary Dx); [...] Info) Description 08/14/2025 10:00 AM CDT Appointment [facility] Interventional Radiology S [address] [facility] [address] [facility] [place] [address] Gracie Torrez MD [address] [address] 7, [employer] [address] [place], [facility] [place] Health Maintenance Due Date Last Done Comments Traditional Medicare (ACO) A nnual Wellness Visit 1969 FIT-DNA Q 3 years 1995 FIT/FOBT Q 1 year 1995 Flex Sig/CT Colonography Q 5 years 1995 DTAP/TDAP/TD VACCINES (1 - Tdap) 11/19/2017 11/18/19 18 INFLUENZA VACCINE (#1) 2025 3, 08/19/2022, 08/13/2021, Additional history exists COVID-19 Vaccine (5 - 2024-2 6 season) 2025 09/02/2022, 10/22/2021, 02/17/2021, Additional history exists RSV VACCINE (60+ or ) (1 - 1-dose 75+ series) 2025 COLORECTAL SCREENING 09/20/2028 09/20/2018 Colorectal Cancer Screening 09/20/2028 PNEUMOCOCCAL VACCINE 50+ YEARS Completed 0 11/25/2021, 06/07/2018, 08/18/2016 ZOSTER VACCINE Completed 03/08/2024, 07/08/2023 Procedures Procedure Name Priority Date/Time Associated Diagnosis Comments US ABDOMEN COMPLETE Routine 07/17/2025 3 :16 PM CDT FLOW CYTOMETRY REPORT Routine 06/12/2025 10:13 AM CDT COMPREHENSIVE METABOLIC PANEL Routine 06/11/2025 1:50 PM CDT METHYLMALONIC ACID Routine 06/11/2025 10 :36 AM CDT CHG SOLUBLE TRANSFERRIN RECEPTOR Routine 06/11/2025 10:32 AM CDT IVORY PANEL Routine 06/11/2025 10:15 AM CDT from Last 3 Months Results * US ABDOMEN COMPLETE (07/17/2025 3:16 PM CDT) Anatomical Region Laterality Modality Abdomen Ultrasound us El Khan MD US ORDERABLES Final Result * FLOW CYTOMETRY REPORT (06/12/2025 10:13 AM CDT) us El Khan MD PATHOLOGY/CYTOLOGY ORDERABLES F inal Result * COMPREHENSIVE METABOLIC PANEL (06/11/2025 1:50 PM CDT) Blood us El Khan MD CHEMISTRY ORDERABLES Final Resu lt * METHYLMALONIC ACID (06/11/2025 10:36 AM CDT) Blood us El Khan MD CHEMISTRY ORDERABLES Final Resu lt * CHG SOLUBLE TRANSFERRIN RECEPTOR (06/11/2025 10:32 AM CDT) us El Khan MD CHG - LABORATORY Final Result * IVORY PANEL (06/11/2025 10:15 AM CDT) Blood us El Khan MD CHEMISTRY ORDERABLES Final Resu lt from Last 3 Months Insurance MEDICARE PART A AND B [facility]
--- OUTSIDE RECORDS SUMMARY | 2025-07-25 15:06 | XMS_ITS | Encounter Summary ---
Author Organization [facility] Address [address] [place] [address] Care Team Providers Care Solar Panel Installer Name Role Phone Unavailable Primary Care Provider Unavailabl e Encounter Details Date Type Department Care Team (Late Contact Info) Description 07/23/2025 Orders Only [facility] Oncology and Hematology - [address] [place] [address] El Khan MD [address] [facility] [address] [place] [address] Social History Tobacco Use Types Packs/Day Years [...] Encounters Date Type Department Care Team (Late Contact Info) Description 08/14/2025 10:[address] [facility] Interventional Radiology [address] [place] [address] [place] [address] Gracie Torrez MD [address] [place] [address] 7, [employer] [facility] [place] documented as of this encounter Procedures Procedure Name Priority Date/Time Associated Diagnosis Comments US ABDOMEN COMPLETE Routine 07/17/2025 3:16 PM CDT documented in this encounter Results * US ABDOMEN COMPLETE (07/17/2025 3:16 PM CDT) Anatomical Region Laterality Modality Abdomen Ultrasound us El Khan MD US ORDERABLES Final Result documented in this encounter Visit Diagnoses Not on filedocumented in this encounter
[2025-07-26 12:08] LABS: Albumin 4.3 g/dL (2.9-4.4); Alpha-1-Globulin 0.2 g/dL (0.0-0.4); Alpha-2-Globulin 0.6 g/dL (0.4-1.0); Gamma Globulin 0.8 g/dL (0.4-1.8)
== END 2025-07-25 13:22 | disposition home or self-care (01) ==
LOC: ANHLAB 13:22
PROVIDERS: PCP Family Medicine; Visit Provider Internal Medicine Hematology & Oncology
DX: D64.9 Anemia, unspecified (principal)
CPT/HCPCS: 36415; 83010; 84155; 84165; 85046